=== PATIENT | female | born 1950 | race African-American/Black ===

== ENCOUNTER → 2017-04-11 | Outpatient (CLI) | payer OTHER ==
--- NOTE | 2017-04-11 13:09 | RAD ---
DATE: 04/11/2017 EXAM: DIGITAL SCREEN BILAT W/CAD HISTORY: Routine screening COMPARISON: 03/23/2016 This study was interpreted with the benefit of Computerized Aided Detection (CAD). FINDINGS: Breast Density: FATTY The Breast Parenchyma is primarily fatty replaced. Breast parenchyma level density A.. There has been little change compared to the previous exam IMPRESSION: Benign finding BI-RADS CATEGORY: 2 BENIGN FINDING(S) RECOMMENDED FOLLOW-UP: 12M 12 MONTH FOLLOW-UP PQRS compliance statement: Patient information was entered into a reminder system with a target due date 04/11/2018 for the next mammogram. Mammography is a sensitive method for finding small breast cancers, but it does not detect them all and is not a substitute for careful clinical examination. A negative mammogram does not negate a clinically suspicious finding and should not result in delay in biopsying a clinically suspicious abnormality. "Our facility is accredited by the [employer] Mammography Program."
== END | disposition home or self-care (01) ==
LOC: MAMMO 12:28
PROVIDERS: ATTEND Physician Assistant Surgical
DX: Z12.31 Encounter for screening mammogram for malignant neoplasm of breast (principal)
CPT/HCPCS: G0202; 77067

== ENCOUNTER → 2017-05-16 | Outpatient (CLI) | payer OTHER ==
--- NOTE | 2017-05-16 12:28 | CARD ---
APPROVED REPORT EXAM: Two-dimensional and M-mode echocardiogram with Doppler and color Doppler. Other Information Quality : Good INDICATION Murmur 2D DIMENSIONS RVDd3.2 (2.9-3.5cm)Left Atrium(2D)3.7 (1.6-4.0cm) IVSd1.3 (0.7-1.1cm)Aortic Root(2D)2.2 (2.0-3.7cm) LVDd4.2 (3.9-5.9cm)LVOT Diameter1.9 (1.8-2.4cm) PWd1.3 (0.7-1.1cm)LVDs2.3 (2.5-4.0cm) FS (%) 30.0 %SV59.8 ml LVEF(%)60.0 (>50%) Aortic Valve AoV Peak Cliff.167.4cm/sAoV VTI41.8cm AO Peak GR.11.2mmHgLVOT Peak Cliff.154.7cm/s LVOT VTI 37.31cmAO Mean GR.7mmHg JOSHUA (VMAX)2.68nz0FKJ (VTI)2.60cm2 AI P 1/2 Tjeh697yp Mitral Valve MV E Wlvpmgsl43.8cm/sMV DECEL QAXD448wa MV A Tlrwborv744.4cm/sMV WEJ18wi E/A Ratio0.7MVA (PHT)2.72cm2 TDI E/Lateral E'17.5E/Medial E'17.9 Tricuspid Valve TR P. Wjvepyia062ue/sRAP BNHGWGEY1bbJt TR Peak Gr.17uaDtBNEO50xdGj Pulmonary Vein S1 Sybiqjdm99.0cm/sD2 Bqfcezxo72.6cm/s LEFT VENTRICLE The left ventricle is normal size. There is mild concentric left ventricular hypertrophy. The left ve ntricular systolic function is normal and the ejection fraction is within normal range. The Ejection Fraction is 55-60%. There is normal LV segmental wall motion. Transmitral Doppler flow pattern is Gra de I-abnormal relaxation pattern. RIGHT VENTRICLE The right ventricle is normal size. The right ventricular systolic function is normal. ATRIA The left atrium size is normal. The right atrium size is normal. The interatrial septum is intact wit h no evidence for an atrial septal defect or patent foramen ovale as noted on 2-D or Doppler imaging. AORTIC VALVE The aortic valve is not well visualized but appears to be functioning normally by Doppler interrogati on. Doppler and Color Flow revealed mild aortic regurgitation. There is no significant aortic valvula r stenosis. MITRAL VALVE The mitral valve is normal in structure and function. Mitral annular calcification is mild. There is no evidence of mitral valve prolapse. There is no mitral valve stenosis. Doppler and Color-flow revea led trace to mild mitral regurgitation. TRICUSPID VALVE The tricuspid valve is normal in structure and function. Doppler and Color Flow revealed trace tricus pid regurgitation. There is moderate pulmonary hypertension. The PA pressure was estimated at 46 mmHg . There is no tricuspid valve stenosis. PULMONIC VALVE Doppler and Color Flow revealed trace pulmonic valvular regurgitation. There is no pulmonic valvular stenosis. GREAT VESSELS The aortic root is normal in size. The ascending aorta is normal in size. The IVC is normal in size a nd collapses >50% with inspiration. PERICARDIAL EFFUSION There is no evidence of significant pericardial effusion. Critical Notification Critical Value: No <Conclusion> The left ventricular systolic function is normal and the ejection fraction is within normal range. Th e Ejection Fraction is 55-60%. There is normal LV segmental wall motion. There is mild concentric left ventricular hypertrophy.
== END | disposition home or self-care (01) ==
LOC: ECHO 09:09
PROVIDERS: ATTEND Internal Medicine Cardiovascular Disease
DX: I27.20 Pulmonary hypertension, unspecified (principal); R01.1 Cardiac murmur, unspecified
CPT/HCPCS: 93306

== ENCOUNTER 2018-01-22 06:34 | Outpatient (CLI) | payer OTHER ==
[2018-01-22 07:20] LABS: ADD MAN DIFF? NO
[2018-01-22 07:23] LABS: BASO # 0.1 x10^3/uL (0.0-0.2); BASO % 1 % (0-3); EOS % 0 % (0-3); HEMATOCRIT 39.9 % (36.0-47.0); HEMOGLOBIN 13.1 g/dL (12.0-15.5); LYMPH # 1.1 x10^3/uL (1.0-4.8); LYMPH % 12 % (24-48); MEAN CORPUSCULAR HEMOGLOBIN 28 pg (25-35); MEAN CORPUSCULAR HGB CONC 33 g/dL (31-37); MEAN CORPUSCULAR VOLUME 85 fL (79-100); MONO # 0.1 x10^3/uL (0.0-1.1); MONO % 1 % (0-9); NEUT # 8.4 x10^3uL (1.8-7.7); NEUT % 87 % (31-73); PLATELET COUNT 201 x10^3/uL (140-400); RED CELL DISTRIBUTION WIDTH 15.7 % (11.5-14.5); WHITE BLOOD COUNT 9.7 x10^3/uL (4.0-11.0)
[2018-01-22 07:33] LABS: PROTHROMBIN TIME PATIENT 12.7 SEC (11.7-14.0)
[2018-01-22] MEDS ORDERED: LIDOCAINE 2%/EPI 1:100,000 20 ML VIAL. (08:10)
[2018-01-22 08:32] LABS: % BANDS 10 % (0-9); % LYMPHS 13 % (24-48); % MONOS 1 % (0-10); % SEGS 76 % (35-66)
[2018-01-22 08:33] LABS: PLT ESTIMATE ADEQUATE (ADEQUATE)
[2018-01-22 08:34] LABS: ANISOCYTOSIS SLIGHT
[2018-01-22] MEDS ORDERED: ceFAZolin 1GM IVPB FOR OMNI 100 ML IV (08:36)
[2018-01-22] MEDS ORDERED: MIDAZOLAM HCL/PF 2 MG/2 ML VIAL. (08:36)
[2018-01-22] MEDS ORDERED: fentaNYL PF VIAL 100 MCG/2 ML VIAL (08:37)
[2018-01-22] MEDS: MIDAZOLAM HCL/PF 2 MG/2 ML VIAL. IV (09:14)
[2018-01-22] MEDS: fentaNYL PF VIAL 100 MCG/2 ML VIAL IV (09:15)
[2018-01-22] MEDS: LIDOCAINE 2%/EPI 1:100,000 20 ML VIAL. IJ (09:15)
== END 2018-01-22 11:00 | disposition home or self-care (01) ==
LOC: INTRAD 06:34
DX: C34.90 Malignant neoplasm of unspecified part of unspecified bronchus or lung (principal); I10 Essential (primary) hypertension; E66.9 Obesity, unspecified; E11.9 Type 2 diabetes mellitus without complications; D64.9 Anemia, unspecified; Z98.890 Other specified postprocedural states; Z79.899 Other long term (current) drug therapy; Z87.891 Personal history of nicotine dependence; Z90.710 Acquired absence of both cervix and uterus; Z79.84 Long term (current) use of oral hypoglycemic drugs; Z85.118 Personal history of other malignant neoplasm of bronchus and lung
CPT/HCPCS: 36415; 36561; 76937; 77001; 85007; 85025; 85610; 99152; 99153; C1751; C1892; J0690; J2250; J3010; J3490

== ENCOUNTER → 2018-03-12 | Outpatient (CLI) | payer OTHER ==
[2018-01-22 09:30] VITALS: BP 119/65
[~2018-03-12] MED LIST: AMLO2.5T PO; BENZ-8 PO; BENZ100C PO; CHOL10003 PO; CLON0.2T PO; CYAN10005 PO; DEXA4TAB PO; FURO40TA4 PO; GLIP5TAB10 PO; HYDR12.53 PO; LINA5TAB4 PO; LISI1TAB5 PO; LUBI24CA7 PO; METO-239 PO; OMEP40CA5 PO; ONDA8TAB9 PO; OXYC-327 PO; POTA10TA12 PO; SERT25TA PO; SPIR25TA5 PO; VENTOLIN HFA18 GM INH; ZOLP5TAB5 PO
--- NOTE | 2018-03-12 13:07 | RAD ---
EXAM: CT Chest without IV contrast CLINICAL HISTORY: MALIGNANT NEOPLASM OF UPPER LOBE OF LEFT LUNG COMPARISON: 11/10/2017, PET scan 12/15/1979 TECHNIQUE: CT of the chest without intravenous contrast. Axial, coronal and sagittal reformatted images were generated. ---PQRS compliance statement - One or more of the following individualized dose reduction techniques were utilized for this study: 1. Automated exposure control 2. Adjustment of the mA and/or kV according to patient size 3. Use of iterative reconstruction technique--- FINDINGS: Lack of intravenous contrast limits evaluation of solid organs, vasculature, and lymph nodes. Chest: The heart is not enlarged. Trace pericardial fluid is likely physiologic. Coronary artery calcifications are seen. Right Port-A-Cath tip terminates in the distal SVC/cavoatrial junction. No definite mediastinal lymphadenopathy. Within the constraints of this noncontrast exam, no hilar lymphadenopathy. No axillary lymphadenopathy. The known left upper lobe and hilar lung mass have since decreased in size now measuring approximately 2.1 x 1.4 cm in the left suprahilar region. Mild associated fissural thickening is seen. No pleural effusion or pneumothorax. Visualized Upper abdomen: Unremarkable Bones: Multilevel degenerative changes of the thoracic spine are seen. IMPRESSION: 1. The known left upper lobe lung mass has decreased in size suggesting favorable treatment response. 2. No thoracic lymphadenopathy. Electronically signed by: Luis Alberto Jansen MD (03/12/2018 1:04 PM) [id number]
== END | disposition home or self-care (01) ==
LOC: CT 10:31
PROVIDERS: ATTEND Internal Medicine Hematology & Oncology
DX: C34.12 Malignant neoplasm of upper lobe, left bronchus or lung (principal); I10 Essential (primary) hypertension; E11.9 Type 2 diabetes mellitus without complications; E78.5 Hyperlipidemia, unspecified; K21.9 Gastro-esophageal reflux disease without esophagitis; J44.1 Chronic obstructive pulmonary disease with (acute) exacerbation; Z87.891 Personal history of nicotine dependence; Z85.118 Personal history of other malignant neoplasm of bronchus and lung; Z90.710 Acquired absence of both cervix and uterus; Z68.41 Body mass index [BMI] 40.0-44.9, adult; Z83.3 Family history of diabetes mellitus
CPT/HCPCS: 71250

== ENCOUNTER → 2018-05-09 | Outpatient (CLI) | payer OTHER ==
[2018-01-22 09:30] VITALS: BP 119/65
[~2018-05-09] MED LIST changes: -AMLO2.5T PO; +AMLO2.5T3 PO
--- NOTE | 2018-05-09 15:21 | RAD ---
Examination: Ultrasound right upper extremity venous duplex HISTORY: History of right-sided arm, chest pain around the port COMPARISON: None available TECHNIQUE: Grayscale, color Doppler 2-D, spectral waveform analysis of the right upper extremity venous system were performed FINDINGS: The visualized internal jugular vein, subclavian vein, axillary vein, brachial, basilic, radial, ulnar and cephalic veins are patent. Images of the right chest about the port grossly appears unremarkable. IMPRESSION: No evidence of deep venous thrombosis right upper extremity venous system. Electronically signed by: Stephan Suarez MD (05/09/2018 3:18 PM) [id number]
== END | disposition home or self-care (01) ==
LOC: US 14:27
PROVIDERS: ATTEND Internal Medicine Hematology & Oncology
DX: R07.89 Other chest pain (principal)
CPT/HCPCS: 93971

== ENCOUNTER → 2018-07-31 | Outpatient (CLI) | payer OTHER ==
[2018-01-22 09:30] VITALS: BP 119/65
[~2018-07-31] MED LIST changes: -HYDR12.53 PO; +HYDR12.575 PO; +IOHEXOL 300 MG/ML 100ML VIAL. IV ONE; +LINA5TAB PO; -LINA5TAB4 PO; -OXYC-327 PO; +OXYC1TAB19 PO
--- NOTE | 2018-07-31 12:53 | RAD ---
CT CHEST W/CONTRAST Indication: Lung cancer Technique: Postcontrast CT imaging was performed of the chest, multiplanar reconstruction images submitted. One or more of the following individualized dose reduction techniques were utilized for this examination: 1. Automated exposure control 2. Adjustment of the mA and/or kV according to patient size 3. Use of iterative reconstruction technique. Comparison: March 12, 2018 Findings: As best seen on axial image 19 series 2, there is residual somewhat spiculated left upper lobe mass estimated about 1.1 cm transverse by 1.3 cm AP with adjacent increased somewhat reticular density extending more posteriorly and laterally. There is a greater degree of more central density at this location compared with the previous exam, although overall size fairly similar. There is new mild somewhat reticular, slightly nodular appearing density more anteriorly of the left upper lobe such as seen on axial images 17-19. There is also increased patchy groundglass density of the left upper lobe. More superior reticular density of the left upper lobe was present previously. There is new nodular appearing density of the left lower lobe as seen on axial images 25 and 26, coronal images 49 and 50, greatest dimension about 1.6 cm transverse by 0.8 cm CC by 1 cm AP. There is also new small focus of nodularity along the lateral margin of the left major fissure axial image 19. There is similar mild likely fibrotic change right lower lobe. There is no new right pulmonary nodularity. There is no pleural fluid or pneumothorax. There is coronary calcification. Thoracic aortic caliber is similar, no intraluminal flap. There are probable small foci of nodularity of the thyroid gland bilaterally, largest on the right about 0.8 cm and about 1 cm on the left. There is right port catheter. There is right paratracheal node about 1 cm short axis dimension, probably unchanged although limited comparison as more artifact in this region on previous exam. There is multilevel thoracic spondylosis and degenerative disc disease. IMPRESSION: 1. There is a greater degree of internal density at site of spiculated left upper lobe lesion although size overall similar. There is new focus of nodular density of the left lower lobe. While this could be due to etiology such as infectious infiltrate, new mass is not excluded for which short-term interval follow-up at such as in 2 months advised, other new slight increased nodular and reticular density of the left upper lobe as stated. There is no pleural fluid. Electronically signed by: Braxton Sharma MD (07/31/2018 12:49 PM) [id number]
== END | disposition home or self-care (01) ==
LOC: CT 08:31
PROVIDERS: ATTEND Internal Medicine Hematology & Oncology
DX: C34.12 Malignant neoplasm of upper lobe, left bronchus or lung (principal); M47.894 Other spondylosis, thoracic region; M51.34 Other intervertebral disc degeneration, thoracic region; I25.10 Atherosclerotic heart disease of native coronary artery without angina pectoris; R53.83 Other fatigue
CPT/HCPCS: 71260; Q9967

== ENCOUNTER → 2018-10-08 | Outpatient (CLI) | payer OTHER ==
[2018-01-22 09:30] VITALS: BP 119/65
[~2018-10-08] MED LIST changes: -AMLO2.5T3 PO; +AMLO2.5T5 PO
--- NOTE | 2018-10-08 12:00 | RAD ---
PQRS Compliance statement: One or more of the following individualized dose reduction techniques were utilized for this examination: 1. Automated exposure control. 2. Adjustment of the mA and/or kV according to patient size. 3. Use of iterative reconstruction technique. Indication:MALIGNANT NEOPLASM OF LEFT LUNG
IV OMNI 300 75 MLS
PREVIOUS TECHNIQUE: CT chest with IV contrast with multiplanar reformats. COMPARISON: 07/31/2018 FINDINGS: Right chest wall Chemo-Port is seen with its tip at the cavoatrial junction. Heart is normal in size. No pericardial or pleural effusion. Clear neck base. No enlarged axillary, mediastinal or hilar adenopathy. Trace amount of fluid is seen in the periaortic recess. New spiculated opacity is seen in the superior segment of the left lower lobe approximately measuring 3.4 x 2.0 cm (series 2 image 25). Left suprahilar linear opacities are seen extending to the periphery not significantly changed when compared with exam. Additional ill-defined nodular opacities are seen in the superior segment of the left lower lobe. New spiculated opacity seen in the medial aspect of the anterior left upper lobe (series 2 image 23) measuring 8 mm. Previously mentioned left upper lobe spiculated opacity is stable in morphology and most likely represents chronic scarring. Right lung is clear. Visualized sections through the liver, spleen, gallbladder, pancreas, adrenals and kidneys within normal limits. No suspicious bony lesion. IMPRESSION: 1. New ill-defined spiculated opacity in the superior segment left lower lobe as described above. Follow-up CT chest in 3 months recommended. Other subcentimeter ill-defined opacity in the medial aspect of the left upper lobe, nonspecific. Attention on follow-up. 2. Rest of the findings in the left upper lobe are stable. Electronically signed by: Rizwan Salcido DO (10/08/2018 11:57 AM) [facility]
== END | disposition home or self-care (01) ==
LOC: CT 09:01
PROVIDERS: ATTEND Internal Medicine Hematology & Oncology
DX: C34.12 Malignant neoplasm of upper lobe, left bronchus or lung (principal); R91.8 Other nonspecific abnormal finding of lung field
CPT/HCPCS: 71260; Q9967

== ENCOUNTER → 2019-01-07 | Outpatient (CLI) | payer OTHER ==
[2018-01-22 09:30] VITALS: BP 119/65
[~2019-01-07] MED LIST changes: -IOHEXOL 300 MG/ML 100ML VIAL. IV ONE
--- NOTE | 2019-01-07 14:54 | RAD ---
Right upper extremity venous ultrasound, 01/07/2019: HISTORY: Pain in neck and chest around Port-A-Cath Duplex evaluation of the major veins in the right upper extremity was performed including grayscale, color-flow and spectral Doppler analysis. The right internal jugular, subclavian, axillary and paired brachial veins are patent. The radial and ulnar veins are patent. Patent cephalic and basilic veins are also evident. IMPRESSION: There is no duplex evidence of deep vein thrombosis in the right upper extremity. Electronically signed by: Gibran Allen MD (01/07/2019 2:51 PM) [facility]
== END | disposition home or self-care (01) ==
LOC: US 11:28
PROVIDERS: ATTEND Internal Medicine Hematology & Oncology
DX: M54.2 Cervicalgia (principal); R22.2 Localized swelling, mass and lump, trunk; Z95.9 Presence of cardiac and vascular implant and graft, unspecified
CPT/HCPCS: 93971

== ENCOUNTER → 2019-01-16 | Outpatient (CLI) | payer OTHER ==
[2018-01-22 09:30] VITALS: BP 119/65
[~2019-01-16] MED LIST changes: +CRESTOR10 MG PO; +DURV120V IV; +IOHEXOL 300 MG/ML 100ML VIAL. IV ONE
--- NOTE | 2019-01-16 16:13 | RAD ---
CT of the chest with contrast, 01/16/2019: HISTORY: Follow-up lung cancer Multidetector CT imaging was performed following an IV bolus injection of iodinated contrast material. Comparison is made to a study from 10/08/2018. There is a persistent streaky opacity in the superior segment of the left lower lobe similar to that seen on the previous study. There are linear and groundglass opacities in the left upper lobe along the superolateral aspect of left hilum where a lung malignancy was previously treated. These opacities appear similar to on the previous exam. Mild nodular type infiltrate in the anterior aspect of the left upper lobe has progressed slightly as best seen on axial images 16 through 18 of series #2. A calcified granuloma is present in the left lower lobe. There is minimal unchanged scarring in the right lung. A right Port-A-Cath remains in place extending to the level the atriocaval junction. The heart is mildly enlarged. There is a small amount of pericardial fluid extending into the superior pericardial recesses, also evident on the previous study. Coronary artery calcifications are present. No mediastinal or hilar adenopathy is seen. Moderate scattered degenerative changes are present in the spine. IMPRESSION: Several irregular opacities in the left upper lobe and superior segment of the left lower lobe are similar to those seen on 10/08/2018, with only slight progression of several small streaky and nodular opacities anteriorly. The findings may represent post radiation change and/or inflammation. Residual neoplasm cannot be excluded. Further CT surveillance is suggested. PQRS Compliance Statement: One or more of the following individualized dose reduction techniques were utilized for this examination: 1. Automated exposure control 2. Adjustment of the mA and/or kV according to patient size 3. Use of iterative reconstruction technique Electronically signed by: Gibran Allen MD (01/16/2019 4:10 PM) [facility]
== END | disposition home or self-care (01) ==
LOC: CT 09:34
PROVIDERS: ATTEND Radiology Radiation Oncology
DX: J84.10 Pulmonary fibrosis, unspecified (principal); I25.10 Atherosclerotic heart disease of native coronary artery without angina pectoris; R91.8 Other nonspecific abnormal finding of lung field; M47.814 Spondylosis without myelopathy or radiculopathy, thoracic region; Z85.118 Personal history of other malignant neoplasm of bronchus and lung
CPT/HCPCS: 71260; Q9967

== ENCOUNTER → 2019-05-10 | Outpatient (CLI) | payer OTHER ==
[2018-01-22 09:30] VITALS: BP 119/65
[~2019-05-10] MED LIST changes: +CYAN-25 PO; -CYAN10005 PO; -IOHEXOL 300 MG/ML 100ML VIAL. IV ONE; +LISI1TAB19 PO; -LISI1TAB5 PO; +OMEP40CA45 PO; -OMEP40CA5 PO
--- NOTE | 2019-05-10 16:36 | RAD ---
CHEST PA LATERAL Clinical indications: Acute bronchitis COMPARISON: Portable chest x-ray dated November 14, 2017. Findings: Chronic interstitial lung disease is seen bilaterally. There is a chronic infiltrate within the left upper lobe. This had a more consolidative appearance within the left upper lobe on the previous chest x-ray. Therefore, this may represent residual scarring from previous pneumonia or treated neoplasm. No new lung infiltrate is seen otherwise. No pleural effusion or pneumothorax is seen. Heart size is prominent but stable. Right IJ Port-A-Cath is in place and tip is seen within the right atrium. Mediastinum and pulmonary vasculature are unchanged. Impression: No new radiographic abnormality is seen. Chronic left upper lobe scarring or nodularity. No new abnormality. Right IJ Port-A-Cath tip is seen within the right atrium. No pneumothorax is seen. Electronically signed by: Woo Morales MD (05/10/2019 4:33 PM) [place] [id number]
== END | disposition home or self-care (01) ==
LOC: RAD 08:59
PROVIDERS: ATTEND Nurse Practitioner Family
DX: J84.9 Interstitial pulmonary disease, unspecified (principal); J20.6 Acute bronchitis due to rhinovirus
CPT/HCPCS: 71046

== ENCOUNTER → 2019-05-28 | Outpatient (CLI) | payer OTHER ==
[2018-01-22 09:30] VITALS: BP 119/65
[~2019-05-28] MED LIST changes: +IOHEXOL 240 MG/ML 50ML VIAL. PO ONE; +IOHEXOL 300 MG/ML 100ML VIAL. IV ONE
--- NOTE | 2019-05-28 17:02 | RAD ---
EXAM: CT OF THE CHEST, ABDOMEN AND PELVIS WITH CONTRAST. HISTORY: Lung cancer restaging. TECHNIQUE: Computed tomography of the chest, abdomen and pelvis was performed after the intravenous administration of intravenous contrast. COMPARISON: 01/16/2019. FINDINGS: Bone windows reveal no suspicious lesions. There is grade 1 anterolisthesis at L4-5 associated with moderate to severe osteoarthritis. Central canal stenosis is moderate. A right-sided port catheter has its tip in the superior cavoatrial junction. There are no pathologically enlarged mediastinal or axillary lymph nodes. There is no pleural or pericardial effusion. There is stable fluid within the superior pericardial recesses. There is left ventricular hypertrophy. There are atherosclerotic calcifications of the coronary arteries. The main pulmonary artery measures 3.8 cm. Scarring about the left hilum is consistent with posttreatment change. There is no recurrent mass. Nodular foci in the apex are stable to decreased. Atelectasis or scarring in the apex has increased. A calcified granuloma is noted on the left. The abdomen study is limited by delayed phase contrast enhancement. The liver, gallbladder, pancreas, adrenal glands, spleen and kidneys are unremarkable. There are no pathologically enlarged lymph nodes. There is mild bladder wall thickening. Left colonic diverticulosis is mild. There is no small bowel obstruction. There is no ascites. A small umbilical hernia contains only fat. IMPRESSION: 1. Posttreatment changes on the left have increased mildly. No evidence of recurrent or metastatic disease. 2. Enlargement of the pulmonary arteries suggests pulmonary arterial hypertension. Left ventricular hypertrophy. *One or more of the following individualized dose reduction techniques were utilized for this examination: 1. Automated exposure control. 2. Adjustment of the mA and/or kV according to patient size. 3. Use of iterative reconstruction technique. Electronically signed by: Radha Cole MD (05/28/2019 4:59 PM) [facility]
== END | disposition home or self-care (01) ==
LOC: CT 07:57
PROVIDERS: ATTEND Internal Medicine Hematology & Oncology
DX: K57.30 Diverticulosis of large intestine without perforation or abscess without bleeding (principal); K42.9 Umbilical hernia without obstruction or gangrene; C34.12 Malignant neoplasm of upper lobe, left bronchus or lung; I25.10 Atherosclerotic heart disease of native coronary artery without angina pectoris; J84.10 Pulmonary fibrosis, unspecified; N32.89 Other specified disorders of bladder; I51.7 Cardiomegaly; M43.16 Spondylolisthesis, lumbar region; M47.816 Spondylosis without myelopathy or radiculopathy, lumbar region
CPT/HCPCS: 71260; 74177; Q9966; Q9967

== ENCOUNTER 2019-11-26 08:30 | Outpatient (CLI) | payer MEDICARE, OTHER ==
[~2019-11-26] VITALS: Ht 163.8 cm; Wt 110.7 kg
[~2019-11-26 08:30] MED LIST changes: -IOHEXOL 240 MG/ML 50ML VIAL. PO ONE; -IOHEXOL 300 MG/ML 100ML VIAL. IV ONE
[2019-11-26 08:59] VITALS: BP 171/86
[2019-11-26 09:10] LABS: BASO # 0.1 x10^3/uL (0.0-0.2); BASO % 1 % (0-3); EOS # 0.1 x10^3/uL (0.0-0.7); EOS % 1 % (0-3); HEMATOCRIT 38.4 % (36.0-47.0); HEMOGLOBIN 12.5 g/dL (12.0-15.5); LYMPH % 23 % (24-48); MEAN CORPUSCULAR HEMOGLOBIN 28 pg (25-35); MEAN CORPUSCULAR HGB CONC 33 g/dL (31-37); MEAN CORPUSCULAR VOLUME 87 fL (79-100); MONO # 0.8 x10^3/uL (0.0-1.1); MONO % 9 % (0-9); NEUT # 5.6 x10^3/uL (1.8-7.7); NEUT % 66 % (31-73); PLATELET COUNT 167 x10^3/uL (140-400); RED BLOOD COUNT 4.41 x10^6/uL (3.50-5.40); RED CELL DISTRIBUTION WIDTH 17.1 % (11.5-14.5); WHITE BLOOD COUNT 8.5 x10^3/uL (4.0-11.0)
[2019-11-26] MEDS ORDERED: ZOLP5TAB PO (09:17)
[2019-11-26] MEDS ORDERED: ASPI-612 PO (09:17)
[2019-11-26] MEDS ORDERED: [UNRECOGNIZED DRUG - CODE] PO (09:17)
[2019-11-26] MEDS ORDERED: TRAM50TA PO (09:17)
[2019-11-26] MEDS ORDERED: CALC-497 PO (09:17)
[2019-11-26] MEDS ORDERED: MONT10TA49 PO (09:17)
[2019-11-26] MEDS ORDERED: OMEG-117 PO (09:17)
[2019-11-26] MEDS ORDERED: ATOR10TA60 PO (09:17)
[2019-11-26] MEDS ORDERED: LIDOCAINE 1%/EPI 1:100,000 20 ML VIAL. ONE (09:19)
[2019-11-26 09:20] LABS: PROTHROMBIN TIME PATIENT 11.7 SEC (11.7-14.0)
[2019-11-26] MEDS ORDERED: MIDAZOLAM HCL/PF 2 MG/2 ML VIAL. ONE (10:02)
[2019-11-26] MEDS ORDERED: fentaNYL PF VIAL 100 MCG/2 ML VIAL ONE (10:02)
[2019-11-26 10:29] VITALS: BP 152/77
[2019-11-26] MEDS ORDERED: LIDOCAINE 1%/EPI 1:100,000 20 ML VIAL. INJ ONE (10:30)
[2019-11-26 10:43] VITALS: BP 154/74
[2019-11-26 10:55] VITALS: BP 157/70
[2019-11-26] MEDS ORDERED: oxyCODONE/APAP 7.5/325 1 TAB TABLET PO ONE (11:00)
[2019-11-26 11:25] VITALS: BP 143/67
[2019-11-26 11:55] VITALS: BP 146/74
--- NOTE | 2019-11-26 11:57 | RAD ---
11/26/2019 9:52 AM Removal of right iJ power port Indication: No longer requires Port Discussion: The risks and benefits of the procedure were discussed the patient. Informed consent was obtained. A timeout procedure was performed. The right chest overlying the port was prepped and draped using maximum sterile barrier technique. All elements of maximal sterile barrier technique including the use of a cap, mask, sterile gown, sterile gloves, large sterile sheet, appropriate hand hygiene, and 2% chlorhexidine for cutaneous antisepsis (or acceptable alternative antiseptic per current guidelines) were followed for this procedure. 1% lidocaine was administered for local anesthesia. A small incision was made overlying the port reservoir. The reservoir and catheter were removed intact. The wound was closed using 4-0 Vicryl suture. No immediate complications were identified. Sterile dressings were applied. Impression: Removal of right internal jugular PowerPort
--- NOTE | 2019-11-26 12:10 | NUR ---
Discharge Note: NELL KING Discharge instructions and discharge home medications reviewed with Patient and a copy given. All questions have been answered and understanding verbalized. The following instructions and handouts were given: incision site care Discontinued lines and drains: Peripheral IV intact. Dressing to R chest clean and dry Patient discharged to Home or Self Care with Family Member via Wheelchair MILI RUSSO Addendum: 11/26/19 at 1243 by ANA BARFIELD RN Amended: Links added.
== END 2019-11-26 12:10 | disposition home or self-care (01) ==
LOC: INTRAD 08:30
PROVIDERS: ATTEND Internal Medicine Hematology & Oncology
DX: Z45.2 Encounter for adjustment and management of vascular access device (principal); Z79.01 Long term (current) use of anticoagulants
CPT/HCPCS: 36415; 36590; 77001; 85025; 85610; J3490

== ENCOUNTER 2019-12-17 00:29 | Emergency (ER) | payer MEDICARE, OTHER ==
[~2019-12-17] VITALS: Ht 162.6 cm; Wt 110.3 kg
[~2019-12-17 00:29] MED LIST changes: +ASPI-612 PO; +ATOR10TA60 PO; +CALC-497 PO; +MONT10TA49 PO; +OMEG-117 PO; +TRAM50TA PO; +ZOLP5TAB PO; +[UNRECOGNIZED DRUG - CODE] PO
[2019-12-17] MEDS ORDERED: HYDR-3164 PO (00:42)
[2019-12-17] MEDS ORDERED: ORPH100T PO (00:42)
--- NOTE | 2019-12-17 00:42 | PHYS DOC ---
Past Medical History Past Medical History: Arrhythmia, Asthma, Diabetes-Type II, Hypertension Past Surgical History: Tubal ligation, Other Additional Past Surgical Histo: 2 procedures Smoking Status: Former Smoker Alcohol Use: None Drug Use: None General Adult EDM: Chief Complaint: BACK PAIN OR INJURY HPI: HPI: Patient is a 69 year old female who presents with complaint of acute exacerbation of chronic back pain. Patient indicates that she has a history of slipped disc and she was on the toilet going to the bathroom when she felt pain getting worse. She states she went to get up and go to bed but was not able to get onto her bed due to the pain. Patient called 911. Patient rates her pain to be a 10 out of 10. She denies any loss of bowel or bladder control and denies saddle anesthesia. She states that pain is worsened with movement. She does indicate that she has a history of a slipped disc and L4-5 fusion. [] Review of Systems: Review of Systems: Constitutional: Denies fever or chills. [] Respiratory: Denies cough or shortness of breath. [] Cardiovascular: Denies chest pain or edema. [] Musculoskeletal: Complains of lower back pain. [] Integument: Denies rash. [] Neurologic: Denies headache, focal weakness or sensory changes. [] Heart Score: Risk Factors: Risk Factors: DM, Current or recent (<one month) smoker, HTN, HLP, family history of CAD, obesity. Risk Scores: Score 0 - 3: 2.5% MACE over next 6 weeks - Discharge Home Score 4 - 6: 20.3% MACE over next 6 weeks - Admit for Clinical Observation Score 7 - 10: 72.7% MACE over next 6 weeks - Early Invasive Strategies Allergies: Allergies: Allergies Coded Allergies Type Severity Reaction Last Updated Verified No Known Drug Allergies 11/26/19 No Physical Exam: PE: Constitutional: Well developed, well nourished, no acute distress, non-toxic appearance. [] Neck: Normal range of motion, no tenderness, supple, no stridor. [] Cardiovascular: Regular rate and rhythm [] Lungs & Thorax: Bilateral breath sounds clear to auscultation [] Abdomen: Bowel sounds normal, soft, no tenderness. [] Skin: Warm, dry, no erythema, no rash. [] Back: There is tenderness to palpation bilateral lumbar spine paraspinal musculature. [] Neurologic: Alert and oriented X 3, no focal deficits noted. [] EKG: EKG: [] Radiology/Procedures: Radiology/Procedures: [] Course & Med Decision Making: Course & Med Decision Making Pertinent Labs and Imaging studies reviewed. (See chart for details) [] Dragon Disclaimer: Dragon Disclaimer: This electronic medical record was generated, in whole or in part, using a voice recognition dictation system. Departure Departure Impression: Primary Impression: Acute exacerbation of chronic low back pain Disposition: HOME, SELF-CARE Condition: STABLE Referrals: DEANDRE KLINE D.O. (PCP) Patient Instructions: Back Pain, Adult, Chronic Back Pain Scripts Orphenadrine Citrate (ORPHENADRINE CITRATE) 100 Mg Tablet.er 1 TAB PO BID PRN for MUSCLE SPASMS, #14 TAB Prov: RICKY SCOTT Jr. DO 12/17/19 Hydrocodone/Apap 5-325 (NORCO 5-325 TABLET) 1 Each Tablet 1-2 EACH PO PRN Q6HRS PRN for PAIN, #15 as needed for pain Prov: RICKY SCOTT Jr. DO 12/17/19 RICKY SCOTT Jr. DO December 17, 2019 00:42
[2019-12-17 00:43] VITALS: BP 172/75
[2019-12-17] MEDS ORDERED: ORPHENADRINE CITRATE 60 MG/2 ML VIAL. IM ONE (01:00)
[2019-12-17] MEDS ORDERED: fentaNYL PF VIAL 100 MCG/2 ML VIAL IM ONE (01:00)
== END 2019-12-17 01:25 | disposition home or self-care (01) ==
LOC: ER 00:29
DX: G89.29 Other chronic pain (principal); M54.5 Low back pain; E11.9 Type 2 diabetes mellitus without complications; I10 Essential (primary) hypertension; J45.909 Unspecified asthma, uncomplicated; Z87.891 Personal history of nicotine dependence
CPT/HCPCS: 96372; 99284; J2360; J3010

== ENCOUNTER → 2020-03-19 | Outpatient (CLI) | payer MEDICARE, OTHER ==
[~2020-03-19] MED LIST changes: -ASPI-612 PO; +ASPI-886 PO; +HYDR-3164 PO; -LISI1TAB19 PO; +LISI1TAB37 PO; +ORPH100T PO
--- NOTE | 2020-03-19 08:42 | [facility] ---
EXAM: Lumbar spine MRI without contrast. HISTORY: Lower back pain. TECHNIQUE: Multiplanar, multisequence magnetic resonance imaging of the lumbar spine was performed without contrast. COMPARISON: None. FINDINGS: There is grade 1 anterolisthesis of L4 on L5, measuring 6 mm. There is grade 1 anterolisthesis of L5 on S1, measuring 3 mm. There is endplate remodeling with disc space narrowing and osteophytosis at L4-L5. There is disc desiccation and endplate remodeling with Schmorl's node formation at L5-S1. There is additional endplate remodeling at the lower thoracic levels. There is no suspicious osseous lesion. There is no fracture. The conus terminates at L2. There are disc bulges with endplate remodeling at the lower thoracic levels which are not included on the axial images. At L1-L2, there is a disc bulge. There is no stenosis. At L2-L3, there is a disc bulge. There is no stenosis. At L3-L4, there is a left foraminal to extra foraminal disc protrusion with 3 mm superior extrusion superimposed on a disc bulge and endplate remodeling. There is mild bilateral facet arthropathy. There is mild to moderate left foraminal stenosis with abutment of the exiting left L3 nerve root. At L4-L5, there is a broad-based posterior disc protrusion with 4 mm superior extrusion superimposed on a right lateral predominant disc bulge and endplate osteophytosis. There is grade 1 anterolisthesis. There is severe bilateral facet arthropathy. There is severe right and asjh-sr-vnqyaivf left foraminal stenosis with abutment of the exiting right L4 nerve root. There is moderate central canal stenosis. At L5-S1, there is a disc bulge and endplate remodeling. There is severe bilateral facet arthropathy. There is grade 1 anterolisthesis. There is mild bilateral foraminal stenosis. There is mild narrowing of the thecal sac due to epidural fat. IMPRESSION: 1. Grade 1 anterolisthesis of L4 and L5. The combination of listhesis and degenerative changes results in severe right and xkrv-kh-rsrklkaq left foraminal stenosis with abutment of the exiting right L4 nerve root and moderate central canal stenosis. 2. Multilevel degenerative change throughout the remainder of the mid and lower lumbar spine, described in detail above. This results in ajue-kj-zoaqdykh left foraminal stenosis and abutment the exiting left L3 nerve root at L3-L4 and mild bilateral foraminal stenosis at L5-S1. Electronically signed by: Altagracia Vivar MD (03/19/2020 8:39 AM) [facility]
== END | disposition home or self-care (01) ==
LOC: KCIC MRI 07:47
PROVIDERS: ATTEND Family Medicine
DX: M51.36 Other intervertebral disc degeneration, lumbar region (principal); M48.07 Spinal stenosis, lumbosacral region; M47.817 Spondylosis without myelopathy or radiculopathy, lumbosacral region
CPT/HCPCS: 72148

== ENCOUNTER → 2020-10-20 | Outpatient (CLI) | payer MEDICARE, OTHER ==
--- NOTE | 2020-10-20 12:04 | RAD ---
Noncontrast CT scan of the chest compared to similar exam dated May 28, 2019 for squamous cell ellen ng cancer. TECHNIQUE AND FINDINGS: Contiguous axial CT images are obtained through the chest. Sagittal and coron al reformations are evaluated. FINDINGS: There is mild scarring in the left lung apex. There is complete collapse of the left upper lobe as well as the posterior basal segment left lower lobe. These findings have advanced since prior exam, where there was partial atelectasis in the findings may related to evolution of posttreatment change however underlying obstructing neoplasm cannot be excluded. Subtle diffuse groundglass changes throughout both lungs appears chronic. Multifocal coronary artery calcifications are again seen. No suspicious mediastinal, hilar, or axillary lymphadenopathy. Visualized upper abdominal organs are néstor ssly unremarkable, though limited by lack of IV contrast. IMPRESSION: 1. Progression of partial atelectasis in the left upper lobe and posterior medial basal segment left lower lobe to complete atelectasis of these distributions. Findings may represent evolution of posttr eatment change from the patient known prior neoplasm, and there is no definite masslike abnormality, however recurrent neoplasm in one or more distributions cannot be excluded. Recommend three-month fol low-up CT scan and/or PET/CT scan depending on degree of clinical suspicion. PQRS Compliance Statement: One or more of the following individualized dose reduction techniques were utilized for this examinat ion: 1. Automated exposure control 2. Adjustment of the mA and/or kV according to patient size 3. Use of iterative reconstruction technique Electronically signed by: Ramon Cunningham MD (10/20/2020 12:01 PM) [id number]
== END ==
LOC: CT 09:00
PROVIDERS: ATTEND Internal Medicine Hematology & Oncology
DX: C34.12 Malignant neoplasm of upper lobe, left bronchus or lung (principal); J98.4 Other disorders of lung; J98.11 Atelectasis
CPT/HCPCS: 71250

== ENCOUNTER 2021-06-22 16:25 | Inpatient (IN) | payer MEDICARE, OTHER ==
[~2021-06-22] VITALS: Ht 163.8 cm; Wt 122.3 kg
[~2021-06-22 16:25] MED LIST changes: -OMEP40CA45 PO; +OMEP40CA7 PO
[2021-06-22 17:03] LABS: BASO % 0 % (0-3); EOS # 0.1 x10^3/uL (0.0-0.7); EOS % 1 % (0-3); HEMATOCRIT 36.8 % (36.0-47.0); HEMOGLOBIN 11.5 g/dL (12.0-15.5); LYMPH # 1.1 x10^3/uL (1.0-4.8); LYMPH % 14 % (24-48); MEAN CORPUSCULAR HEMOGLOBIN 28 pg (25-35); MEAN CORPUSCULAR HGB CONC 31 g/dL (31-37); MEAN CORPUSCULAR VOLUME 88 fL (79-100); MONO # 0.6 x10^3/uL (0.0-1.1); MONO % 8 % (0-9); NEUT # 5.9 x10^3/uL (1.8-7.7); NEUT % 77 % (31-73); PLATELET COUNT 147 x10^3/uL (140-400); RED BLOOD COUNT 4.16 x10^6/uL (3.50-5.40); RED CELL DISTRIBUTION WIDTH 17.3 % (11.5-14.5); WHITE BLOOD COUNT 7.7 x10^3/uL (4.0-11.0)
[2021-06-22 17:14] LABS: CALCIUM 8.6 mg/dL (8.5-10.1); GFR 66.1; POTASSIUM 3.2 mmol/L (3.5-5.1)
[2021-06-22 17:20] LABS: ALBUMIN 3.2 g/dL (3.4-5.0); ALBUMIN/GLOBULIN RATIO 0.9 (1.0-1.7); MAGNESIUM 1.9 mg/dL (1.8-2.4); TOTAL BILIRUBIN 0.5 mg/dL (0.2-1.0); TOTAL PROTEIN 6.7 g/dL (6.4-8.2)
--- NOTE | 2021-06-22 17:58 | RAD ---
XR CHEST 1V INDICATION: SOA . COMPARISON STUDY: CT chest 10/20/2020. FINDINGS: Lungs: Normal lung volume. Left upper lung opacities and volume loss. No new consolidation. Pleura: No pleural effusion or pneumothorax. Heart and Mediastinum: Cardiomegaly. The great vessels of the thorax are normal. IMPRESSION: Left upper lung opacities and volume loss at site of patient's previously treated lung cancer. No new consolidation. Electronically signed by: Braxton Cardoso MD (06/22/2021 5:55 PM) [facility]
--- NOTE | 2021-06-22 18:28 | EKG ---
[facility] [address] [place] [address] Test Date: 2021-06-22 Test Time: 16:34:43 Pat Name: NELL KING Department: Room: Gender: F Internet Programmer: : [id number] Requested By: ISAAC CA Order Number: [id number] Reading MD: Dimitrios Mcfadden MD Measurements Intervals [place] Rate: 88 P: WI: QRS: -41 QRSD: 102 T: 128 QT: 394 QTc: 480 Interpretive Statements Atrial fibrillation with controlled ventricular response NON-SPECIFIC ST/T CHANGES Electronically Signed On 06-28-2021 11:49:22 COUNSELING DEPARTMENT CHAIR by Dimitrios Mcfadden MD
--- NOTE | 2021-06-22 22:07 | PHYS DOC ---
Past Medical History Past Medical History: Arrhythmia, Asthma, Diabetes-Type II, Hypertension Additional Past Medical Histor: Lung cancer (ISAAC CA DIRECTOR PHARMACOVIGILANCE) Past Surgical History: Tubal ligation, Other Additional Past Surgical Histo: 2 procedures, port removed 11/26/19 (ISAAC CA DIRECTOR PHARMACOVIGILANCE) Smoking Status: Former Smoker Alcohol Use: None Drug Use: None (ISAAC CA DIRECTOR PHARMACOVIGILANCE) General Adult EDM: Chief Complaint: SHORTNESS OF BREATH HPI: HPI: Patient is a 71 year old female with history of diabetes type 2, hypertension, asthma, COPD currently not a smoker, lung cancer treated with chemo and radiation 1 year ago who presents the ED today complaining of shortness of breath that has been going on for 3 weeks. Patient said he went to see his leather stitcher and was noted to be in A. fib. He was instructed to come to the ED. Patient states symptoms are worse on exertion. Patient denies any chest pain. Patient denies any fever, denies any unusual coughing or congestion. (ISAAC CA DIRECTOR PHARMACOVIGILANCE) Review of Systems: Review of Systems: Constitutional: Denies fever or chills. [] Eyes: Denies change in visual acuity. [] HENT: Denies nasal congestion or sore throat. [] Respiratory: Reports shortness of breath, denies coughing Cardiovascular: Reports new onset of A. fib denies chest pain or edema. [] GI: Denies abdominal pain, nausea, vomiting, bloody stools or diarrhea. [] : Denies dysuria. [] Musculoskeletal: Denies back pain or joint pain. [] Integument: Denies rash. [] Neurologic: Denies headache, focal weakness or sensory changes. [] Psychiatric: Denies depression or anxiety. [] (ISAAC CA DIRECTOR PHARMACOVIGILANCE) Heart Score: C/O Chest Pain: N/A Risk Factors: Risk Factors: DM, Current or recent (<one month) smoker, HTN, HLP, family history of CAD, obesity. Risk Scores: Score 0 - 3: 2.5% MACE over next 6 weeks - Discharge Home Score 4 - 6: 20.3% MACE over next 6 weeks - Admit for Clinical Observation Score 7 - 10: 72.7% MACE over next 6 weeks - Early Invasive Strategies (ISAAC CA DIRECTOR PHARMACOVIGILANCE) Allergies: Allergies: Allergies Coded Allergies Type Severity Reaction Last Updated Verified No Known Drug Allergies 11/26/19 No (ISAAC CA Tracy DIRECTOR PHARMACOVIGILANCE) Physical Exam: PE: Constitutional: Well developed, well nourished, no acute distress, non-toxic appearance. [] HENT: Normocephalic, atraumatic, bilateral external ears normal, oropharynx moist, no oral exudates, nose normal. [] Eyes: PERRLA, EOMI, conjunctiva normal, no discharge. [] Neck: Normal range of motion, no tenderness, supple, no stridor. [] Cardiovascular:Heart rate regular rhythm, no murmur [] Lungs & Thorax: Scattered wheezing Abdomen: Bowel sounds normal, soft, no tenderness, no masses, no pulsatile masses. [] Skin: Warm, dry, no erythema, no rash. [] Back: No tenderness, no CVA tenderness. [] Extremities: No tenderness, no cyanosis, no clubbing, ROM intact, no edema. [] Neurologic: Alert and oriented X 3, normal motor function, normal sensory function, no focal deficits noted. [] Psychologic: Affect normal, judgement normal, mood normal. [] (ISAAC CA Tracy DIRECTOR PHARMACOVIGILANCE) Current Patient Data: Labs: Laboratory Tests Test 06/22/21 16:30 06/22/21 16:50 06/22/21 20:48 White Blood Count 7.7 x10^3/uL (4.0-11.0) Red Blood Count 4.16 x10^6/uL (3.50-5.40) Hemoglobin 11.5 g/dL (12.0-15.5) L Hematocrit 36.8 % (36.0-47.0) Mean Corpuscular Volume 88 fL (79-100) Mean Corpuscular Hemoglobin 28 pg (25-35) Mean Corpuscular Hemoglobin Concent 31 g/dL (31-37) Red Cell Distribution Width 17.3 % (11.5-14.5) H Platelet Count 147 x10^3/uL (140-400) Neutrophils (%) (Auto) 77 % (31-73) H Lymphocytes (%) (Auto) 14 % (24-48) L Monocytes (%) (Auto) 8 % (0-9) Eosinophils (%) (Auto) 1 % (0-3) Basophils (%) (Auto) 0 % (0-3) Neutrophils # (Auto) 5.9 x10^3/uL (1.8-7.7) Lymphocytes # (Auto) 1.1 x10^3/uL (1.0-4.8) Monocytes # (Auto) 0.6 x10^3/uL (0.0-1.1) Eosinophils # (Auto) 0.1 x10^3/uL (0.0-0.7) Basophils # (Auto) 0.0 x10^3/uL (0.0-0.2) Sodium Level 144 mmol/L (136-145) Potassium Level 3.2 mmol/L (3.5-5.1) L Chloride Level 105 mmol/L (98-107) Carbon Dioxide Level 31 mmol/L (21-32) Anion Gap 8 (6-14) Blood Urea Nitrogen 18 mg/dL (7-20) Creatinine 1.0 mg/dL (0.6-1.0) Estimated GFR (Cockcroft-Gault) 66.1 BUN/Creatinine Ratio 18 (6-20) Glucose Level 158 mg/dL (70-99) H Lactic Acid Level 1.5 mmol/L (0.4-2.0) Calcium Level 8.6 mg/dL (8.5-10.1) Magnesium Level 1.9 mg/dL (1.8-2.4) Total Bilirubin 0.5 mg/dL (0.2-1.0) Aspartate Amino Transferase (AST) 18 U/L (15-37) Alanine Aminotransferase (ALT) 31 U/L (14-59) Alkaline Phosphatase 117 U/L (46-116) H Troponin I High Sensitivity 40 ng/L (4-50) 40 ng/L (4-50) FD-Muo-F-Type Natriuretic Peptide 852 pg/mL (0-124) H Total Protein 6.7 g/dL (6.4-8.2) Albumin 3.2 g/dL (3.4-5.0) L Albumin/Globulin Ratio 0.9 (1.0-1.7) L Laboratory Tests 06/22/21 16:30 Laboratory Tests 06/22/21 16:50 Vital Signs: Vital Signs Date Time Temp Pulse Resp B/P (MAP) Pulse Ox O2 Delivery O2 Flow Rate FiO2 11/30/21 21:00 56 32 124/65 (84) 97 2.0 06/22/21 20:34 Nasal Cannula 06/22/21 16:30 98.7 98.7 (ISAAC CA DIRECTOR PHARMACOVIGILANCE) EKG: EK interpreted by Dr. Jerel Ch fib with incomplete left bundle branch pattern, heart rate 88, no STEMI [] (ISAAC CA DIRECTOR PHARMACOVIGILANCE) Radiology/Procedures: Radiology/Procedures: []PROCEDURE: PORTABLE CHEST 1V XR CHEST 1V INDICATION: SOA . COMPARISON STUDY: CT chest 10/20/2020. FINDINGS: Lungs: Normal lung volume. Left upper lung opacities and volume loss. No new consolidation. Pleura: No pleural effusion or pneumothorax. Heart and Mediastinum: Cardiomegaly. The great vessels of the thorax are normal. IMPRESSION: Left upper lung opacities and volume loss at site of patient's previously treated lung cancer. No new consolidation. Electronically signed by: Colette Cardoso MD (06/22/2021 5:55 PM) [facility] DICTATED and SIGNED BY: COLETTE CARDOSO MD DATE: 06/22/21 [id number] (ISAAC CA DIRECTOR PHARMACOVIGILANCE) Course & Med Decision Making: Course & Med Decision Making Pertinent Labs and Imaging studies reviewed. (See chart for details) This is a 71-year-old female patient presenting to the ED today complaining of shortness of breath for 3 weeks and new onset of A. fib that was diagnosed by a leather stitcher as an outpatient today. Patient is currently on oxygen 2 L satting 94 to 96%. On room air she is 92%. Temperature 98.7, heart rate 114, respiration 20, blood pressure 126/60. Chest x-ray is negative for any acute findings, CBC with no acute findings, CMP with potassium of 3.2, oral potassium replacement was ordered. Patient refused a Covid test. CTA chest was ordered as well Spoke with Dr. Elkins who accepted patient for admission, cardiology consult also placed. (ISAAC CA DIRECTOR PHARMACOVIGILANCE) Course & Med Decision Making Patients Care and treatment plan provided by ER Nurse Practitioner. I was available for consult. Patient's chart reviewed. (JENNIFER GORE DO) Katharine Disclaimer: Katharine Disclaimer: This electronic medical record was generated, in whole or in part, using a voice recognition dictation system. (ISAAC CA DIRECTOR PHARMACOVIGILANCE) Departure Departure Impression: Primary Impression: Afib Qualified Codes: I48.91 - Unspecified atrial fibrillation Additional Impression: Chest pain Qualified Codes: R07.9 - Chest pain, unspecified Disposition: 09 ADMITTED INPATIENT Condition: STABLE Referrals: DEANDRE KLINE D.O. (PCP) ISAAC CA APRN Jun 22, 2021 22:07 JENNIFER GORE DO Jun 23, 2021 03:48
[2021-06-22] MEDS ORDERED: ACETAMINOPHEN 325 MG TABLET. PO PRN (22:15)
[2021-06-22] MEDS ORDERED: MORPHINE SULFATE 4 MG/ML INJ. IVP PRN (22:15)
[2021-06-22] MEDS ORDERED: ONDANSETRON PF 4 MG/2 ML VIAL. IVP PRN (22:15)
[2021-06-22] MEDS ORDERED: CONTRAST GIVEN. MC PRN (22:30)
[2021-06-22] MEDS ORDERED: IOHEXOL 350 MG/ML 100 ML VIAL. IV ONE (22:30)
--- NOTE | 2021-06-22 23:20 | RAD ---
PQRS Compliance Statement: One or more of the following individualized dose reduction techniques were utilized for this examinat ion: 1. Automated exposure control 2. Adjustment of the mA and/or kV according to patient size 3. Use of iterative reconstruction technique CT CHEST WITH CONTRAST, PULMONARY ANGIOGRAM History: Reason: SOA PE protocol / Comparison: CT chest without contrast October 20, 2020. Technique: Helical CT of the chest was performed after the administration of 100 cc of Omnipaque 350 intravenous contrast according to PE protocol. Axial and coronal reconstructions were obtained. 3- D MIP images were constructed to better evaluate the pulmonary arteries. Findings: Pulmonary arteries are adequately opacified. There is no evidence of pulmonary embolism. There is no thoracic aortic dissection. There is coronary artery disease. There is left atrial enlarg ement. Cardiac size mildly enlarged. No pericardial effusion. There is no mediastinal adenopathy. The central airways are patent. There is mild atelectasis in the right lower lobe. There is stable co nsolidation in the posterior left upper lung at the site of patient's treated neoplasm. No significan t change from prior study. No abnormal enhancement within the consolidation is definitely seen. The visualized upper abdomen is unremarkable. No acute bone abnormality. IMPRESSION: 1. There is no pulmonary embolus. 2. Stable consolidation/post treatment scarring in the posterior left upper lung. Electronically signed by: Vinnie Hanley MD (06/22/2021 11:17 PM) [facility]
[2021-06-23 04:48] LABS: BASO % 0 % (0-3); EOS # 0.1 x10^3/uL (0.0-0.7); EOS % 2 % (0-3); HEMATOCRIT 38.1 % (36.0-47.0); HEMOGLOBIN 11.7 g/dL (12.0-15.5); LYMPH # 1.1 x10^3/uL (1.0-4.8); LYMPH % 19 % (24-48); MEAN CORPUSCULAR HEMOGLOBIN 27 pg (25-35); MEAN CORPUSCULAR HGB CONC 31 g/dL (31-37); MEAN CORPUSCULAR VOLUME 89 fL (79-100); MONO # 0.6 x10^3/uL (0.0-1.1); MONO % 11 % (0-9); NEUT # 4.1 x10^3/uL (1.8-7.7); NEUT % 69 % (31-73); PLATELET COUNT 147 x10^3/uL (140-400); RED BLOOD COUNT 4.29 x10^6/uL (3.50-5.40); RED CELL DISTRIBUTION WIDTH 17.6 % (11.5-14.5); WHITE BLOOD COUNT 5.9 x10^3/uL (4.0-11.0)
[2021-06-23 05:05] LABS: ALBUMIN 3.3 g/dL (3.4-5.0); ALBUMIN/GLOBULIN RATIO 0.9 (1.0-1.7); CALCIUM 8.7 mg/dL (8.5-10.1); GFR 66.1; POTASSIUM 3.3 mmol/L (3.5-5.1); TOTAL BILIRUBIN 0.5 mg/dL (0.2-1.0); TOTAL PROTEIN 6.8 g/dL (6.4-8.2)
[2021-06-23] MEDS ORDERED: POTASSIUM CHLORIDE 20 MEQ TABLET.ER. PO ONE (07:45)
[2021-06-23] MEDS ORDERED: ACETAMINOPHEN 325 MG TABLET. PO PRN (07:45)
[2021-06-23] MEDS ORDERED: oxyCODONE/APAP 5/325 1 TAB TABLET PO PRN (07:45)
[2021-06-23] MEDS ORDERED: ELECTROLYTE (NON-ICU) PROTOCOL. MC PRN (07:45)
[2021-06-23] MEDS ORDERED: ONDANSETRON PF 4 MG/2 ML VIAL. IVP PRN (07:45)
[2021-06-23] MEDS ORDERED: CALCIUM CARBONATE 500 MG TAB.CHEW PO PRN (07:45)
[2021-06-23] MEDS ORDERED: CYCLOBENZAPRINE 10 MG TABLET. PO PRN (08:00)
[2021-06-23] MEDS ORDERED: ALBUTEROL SULFATE 2.5 MG/3 ML NEBU. NEB PRN (08:00)
[2021-06-23] MEDS: PANTOPRAZOLE 40 MG TABLET.DR. PO SCH (08:19)
[2021-06-23] MEDS: ASPIRIN ENTERIC COATED 81 MG TABLET.DR. PO SCH (08:20)
[2021-06-23] MEDS: FUROSEMIDE 40 MG TABLET. PO SCH (08:20)
[2021-06-23] MEDS: SPIRONOLACTONE 25 MG TABLET PO SCH (08:20)
[2021-06-23] MEDS: SENNOSIDES/DOCUSATE 8.6/50MG TABLET. PO SCH ×2 (08:22→21:45)
[2021-06-23] MEDS: IPRATRPIUM/ALBUTEROL 0.5/2.5MG 3 ML NEBU. NEB SCH ×4 (08:23→18:53)
[2021-06-23 08:32] LABS: BILIRUBIN,URINE NEGATIVE (NEG); CLARITY,URINE CLEAR; COLOR,URINE YELLOW; NITRITE,URINE NEGATIVE (NEG); PH,URINE 5.5 (<5.0-8.0); PROTEIN,URINE NEGATIVE (NEG-TRACE); UROBILINOGEN,URINE 0.2 mg/dL (0.2 mg/dL)
[2021-06-23 08:40] LABS: BACTERIA,URINE 0 /HPF (0-FEW); RBC,URINE 0 /HPF (0-2); WBC,URINE OCC /HPF (0-4)
[2021-06-23] MEDS ORDERED: glipiZIDE 5 MG TABLET PO SCH (09:00)
--- NOTE | 2021-06-23 10:30 | PDOC2 ---
ANITA DAVID SHAKIRA 06/23/21 1030: CARDIAC CONSULT DATE OF CONSULT Date of Consult DATE: 06/23/21 TIME: 10:27 REASON FOR CONSULT Reason for Consult: AFIB REFERRING PHYSICIAN Referring Physician: Kristal Bullard APRN SOURCE Source: Chart review, Patient HISTORY OF PRESENT ILLNESS HISTORY OF PRESENT ILLNESS This is a 71 yo female who presented secondary to AFIB. Patient reports shortness of breath x3 weeks. Had referral to fork repairer Dr. Stevens yesterday at [facility] due to shortness of breath. Was noted in AFIB and referred to the ED for further evaluation and treatment. Patient converted back to SR overnight and is feeling much better this morning. She denies any dizziness, diaphoresis, chest pain, or palpitations. No prior h/o CAD or arrhythmias. Does have a history of SIMRAN and is intolerant to CPAP. PAST MEDICAL HISTORY Cardiovascular: HTN, Hyperlipidemia, Other (murmur ) Pulmonary: Other (SIMRAN) GI: GERD Heme/Onc: Anemia NOS, Cancer (lung, s/p chemo and radiation ) Psych: Depression Musculoskeletal: Osteoarthritis Endocrine: Diabetes PAST SURGICAL HISTORY Past Surgical History: Tubal Ligation, Hysterectomy FAMILY HISTORY Family History: Diabetes, Hypertension SOCIAL HISTORY Smoke: Quit ALCOHOL: none Drugs: None Lives: Alone CURRENT MEDICATIONS CURRENT MEDICATIONS Current Medications Medications (Trade) Dose Ordered Sig/[place] Route PRN Reason Start Time Stop Time Status Last Admin Dose Admin Acetaminophen (Tylenol) 650 mg PRN Q4HRS PRN PO FEVER > 100.3'F 06/22/21 22:15 06/23/21 07:46 DC 06/23/21 01:29 Iohexol (Omnipaque 350 Mg/ml) 100 ml 1X ONCE IV 06/22/21 22:30 06/22/21 22:32 DC 06/22/21 22:30 Potassium Chloride (Klor-Con) 40 meq 1X ONCE PO 06/23/21 07:45 06/23/21 07:46 DC 06/23/21 08:19 Aspirin (Ecotrin) 81 mg DAILY PO 06/23/21 09:00 06/23/21 08:20 Furosemide (Lasix) 40 mg DAILY PO 06/23/21 09:00 06/23/21 08:20 Spironolactone (Aldactone) 12.5 mg DAILY PO 06/23/21 09:00 06/23/21 08:20 Amlodipine Besylate (Norvasc) 2.5 mg DAILY PO 06/23/21 09:00 06/23/21 08:22 Pantoprazole Sodium (Protonix) 40 mg DAILYAC PO 06/23/21 08:00 06/23/21 08:19 Senna/Docusate Sodium (Senna Plus) 1 tab BID PO 06/23/21 09:00 06/23/21 08:22 Enoxaparin Sodium (Lovenox 100mg Syringe) 100 mg 1X ONCE SQ 06/23/21 08:00 06/23/21 08:01 DC 06/23/21 08:19 ALLERGIES ALLERGIES: Coded Allergies: No Known Drug Allergies (Unverified , 11/26/19) ROS Review of System 14 point ROS conducted with pertinent positives noted above in HPI PHYSICAL EXAM General: Alert, Oriented X3, Cooperative, No acute distress HEENT: Atraumatic Lungs: Other (diminished bases) Heart: Regular rate (SR) Abdomen: Soft, Other (obese) Extremities: Other (trace bilateral LE edema ) Skin: No significant lesion Neuro: Normal speech, Sensation intact Psych/Mental Status: Mental status NL, Mood NL MUSCULOSKELETAL: Osteoarthritic changes both hands VITALS/I&O VITALS/I&O: Vital Signs Date Time Temp Pulse Resp B/P (MAP) Pulse Ox O2 Delivery O2 Flow Rate FiO2 06/23/21 08:34 68 19 145/64 (91) 90 Nasal Cannula 2.0 06/22/21 16:30 98.7 98.7 LABS Lab: Laboratory Tests Test 06/22/21 16:30 06/22/21 16:50 06/22/21 20:48 06/22/21 22:45 White Blood Count 7.7 x10^3/uL (4.0-11.0) Red Blood Count 4.16 x10^6/uL (3.50-5.40) Hemoglobin 11.5 g/dL (12.0-15.5) L Hematocrit 36.8 % (36.0-47.0) Mean Corpuscular Volume 88 fL (79-100) Mean Corpuscular Hemoglobin 28 pg (25-35) Mean Corpuscular Hemoglobin Concent 31 g/dL (31-37) Red Cell Distribution Width 17.3 % (11.5-14.5) H Platelet Count 147 x10^3/uL (140-400) Neutrophils (%) (Auto) 77 % (31-73) H Lymphocytes (%) (Auto) 14 % (24-48) L Monocytes (%) (Auto) 8 % (0-9) Eosinophils (%) (Auto) 1 % (0-3) Basophils (%) (Auto) 0 % (0-3) Neutrophils # (Auto) 5.9 x10^3/uL (1.8-7.7) Lymphocytes # (Auto) 1.1 x10^3/uL (1.0-4.8) Monocytes # (Auto) 0.6 x10^3/uL (0.0-1.1) Eosinophils # (Auto) 0.1 x10^3/uL (0.0-0.7) Basophils # (Auto) 0.0 x10^3/uL (0.0-0.2) Sodium Level 144 mmol/L (136-145) Potassium Level 3.2 mmol/L (3.5-5.1) L Chloride Level 105 mmol/L (98-107) Carbon Dioxide Level 31 mmol/L (21-32) Anion Gap 8 (6-14) Blood Urea Nitrogen 18 mg/dL (7-20) Creatinine 1.0 mg/dL (0.6-1.0) Estimated GFR (Cockcroft-Gault) 66.1 BUN/Creatinine Ratio 18 (6-20) Glucose Level 158 mg/dL (70-99) H Lactic Acid Level 1.5 mmol/L (0.4-2.0) Calcium Level 8.6 mg/dL (8.5-10.1) Magnesium Level 1.9 mg/dL (1.8-2.4) Total Bilirubin 0.5 mg/dL (0.2-1.0) Aspartate Amino Transferase (AST) 18 U/L (15-37) Alanine Aminotransferase (ALT) 31 U/L (14-59) Alkaline Phosphatase 117 U/L (46-116) H Troponin I High Sensitivity 40 ng/L (4-50) 40 ng/L (4-50) 43 ng/L (4-50) TC-Nnb-H-Type Natriuretic Peptide 852 pg/mL (0-124) H Total Protein 6.7 g/dL (6.4-8.2) Albumin 3.2 g/dL (3.4-5.0) L Albumin/Globulin Ratio 0.9 (1.0-1.7) L Test 06/23/21 04:25 White Blood Count 5.9 x10^3/uL (4.0-11.0) Red Blood Count 4.29 x10^6/uL (3.50-5.40) Hemoglobin 11.7 g/dL (12.0-15.5) L Hematocrit 38.1 % (36.0-47.0) Mean Corpuscular Volume 89 fL (79-100) Mean Corpuscular Hemoglobin 27 pg (25-35) Mean Corpuscular Hemoglobin Concent 31 g/dL (31-37) Red Cell Distribution Width 17.6 % (11.5-14.5) H Platelet Count 147 x10^3/uL (140-400) Neutrophils (%) (Auto) 69 % (31-73) Lymphocytes (%) (Auto) 19 % (24-48) L Monocytes (%) (Auto) 11 % (0-9) H Eosinophils (%) (Auto) 2 % (0-3) Basophils (%) (Auto) 0 % (0-3) Neutrophils # (Auto) 4.1 x10^3/uL (1.8-7.7) Lymphocytes # (Auto) 1.1 x10^3/uL (1.0-4.8) Monocytes # (Auto) 0.6 x10^3/uL (0.0-1.1) Eosinophils # (Auto) 0.1 x10^3/uL (0.0-0.7) Basophils # (Auto) 0.0 x10^3/uL (0.0-0.2) Sodium Level 147 mmol/L (136-145) H Potassium Level 3.3 mmol/L (3.5-5.1) L Chloride Level 106 mmol/L (98-107) Carbon Dioxide Level 32 mmol/L (21-32) Anion Gap 9 (6-14) Blood Urea Nitrogen 17 mg/dL (7-20) Creatinine 1.0 mg/dL (0.6-1.0) Estimated GFR (Cockcroft-Gault) 66.1 BUN/Creatinine Ratio 17 (6-20) Glucose Level 136 mg/dL (70-99) H Calcium Level 8.7 mg/dL (8.5-10.1) Total Bilirubin 0.5 mg/dL (0.2-1.0) Aspartate Amino Transferase (AST) 20 U/L (15-37) Alanine Aminotransferase (ALT) 29 U/L (14-59) Alkaline Phosphatase 112 U/L (46-116) Total Protein 6.8 g/dL (6.4-8.2) Albumin 3.3 g/dL (3.4-5.0) L Albumin/Globulin Ratio 0.9 (1.0-1.7) L Laboratory Tests 06/22/21 16:30 06/23/21 04:25 Laboratory Tests 06/22/21 16:50 06/23/21 04:25 ECHOCARDIOGRAM ECHOCARDIOGRAM <Conclusion> The left ventricle systolic function is normal. The Ejection Fraction is 70-75%. There is normal LV segmental wall motion. The left atrium is mildly dilated. Mild aortic regurgitation. Trace mitral regurgitation. Trace tricuspid regurgitation. There is modoerate pulmonary hypertension. PASP is 59mmHg. There is no evidence of significant pericardial effusion. DATE: 11/15/17 1606 ASSESSMENT/PLAN ASSESSMENT/PLAN 1. New onset AFIB; converted back to SR 2. Obesity, SIMRAN intolerant to CPAP 3. Hypertension; controlled 4. Hyperlipidemia; statin 5. Diabetes, II 6. H/o lung CA s/p chemo and radiation 7. Hypokalemia; replaced Recommendations Echo to assess LV systolic function TSH Add metoprolol for rate control [id number] 4 correlating with a 4.8% risk of stroke per year. Recommend Eliquis for stroke prophylaxis Outpatient event monitor to guide therapy Consider outpatient ischemic evaluation Supportive care REBECCA JOLLY MD 06/23/212103: CARDIAC CONSULT ASSESSMENT/PLAN ASSESSMENT/PLAN Patient seen and examined. Agree with BARREL STRAIGHTENER's assessment and plan. Atrial fibrillation, newly diagnosed presently back in SR Agree with metoprolol for rate control and eliquis for stroke prophylaxis Check 2D echo to assess LVF Plan outpatient event monitor and ischemic evaluation Thank you for your consultation ANITA DAVID APRN Jun 23, 2021 10:30 REBECCA JOLLY MD Jun 23, 2021 21:04
[2021-06-23 10:53] LABS: CHOLESTEROL/HDL RATIO 2.1
--- NOTE | 2021-06-23 11:13 | PDOC1 ---
History and Physical Date of Service: DOS: DATE: 06/23/21 TIME: 11:06 Chief Complaint: Chief Complain: SOB History of Present Illness: HPI: Patient is a 71 year old female with history of diabetes type 2, hypertension, asthma, COPD currently not a smoker, lung cancer treated with chemo and radiation 1 year ago who presented to the ED overnight complaining of shortness of breath for last 2-3 weeks.. Patient said she went to see her own doctor and was noted to be in A. fib. Was then instructed to come to the ED. Patient states symptoms are worse on exertion. Patient denies any chest pain. Patient denies any fever, denies any unusual coughing or congestion. Patient denies Past Medical/Surgical History: PMH/PSH: Past Medical History: Asthma, Diabetes-Type II, Hypertension Additional Past Medical Histor: Lung cancer s/p chemo Allergies: Allergies: Coded Allergies: No Known Drug Allergies (Unverified , 11/26/19) Family History: Family History: HTN, DM Social History: Social History: former smoker; denies aslcohol drug use Current Medications: Current Medications Current Medications Ondansetron HCl (Zofran) 4 mg PRN Q8HRS PRN IVP NAUSEA/VOMITING; Start 06/22/21 at 22:15; Stop 06/23/21 at 07:47; Status DC Morphine Sulfate (Morphine Sulfate) 4 mg PRN Q2HR PRN IVP PAIN; Start 06/22/21 at 22:15; Stop 06/23/21 at 22:14 Acetaminophen (Tylenol) 650 mg PRN Q4HRS PRN PO FEVER > 100.3'F Last administered on 06/23/21at 01:29; Start 06/22/21 at 22:15; Stop 06/23/21 at 07:46; Status DC Albuterol/ Ipratropium (Duoneb) 3 ml RTQID NEB ; Start 06/23/21 at 08:00; Stop 06/24/21 at 07:59 Iohexol (Omnipaque 350 Mg/ml) 100 ml 1X ONCE IV Last administered on 06/22/21at 22:30; Start 06/22/21 at 22:30; Stop 06/22/21 at 22:32; Status DC Info (CONTRAST GIVEN -- Rx MONITORING) 1 each PRN DAILY PRN MC SEE COMMENTS; Start 06/22/21 at 22:30; Stop 06/24/21 at 22:29 Potassium Chloride (Klor-Con) 40 meq 1X ONCE PO Last administered on 06/23/21at 08:19; Start 06/23/21 at 07:45; Stop 06/23/21 at 07:46; Status DC Aspirin (Ecotrin) 81 mg DAILY PO Last administered on 06/23/21at 08:20; Start 06/23/21 at 09:00 Atorvastatin Calcium (Lipitor) 10 mg QHS PO ; Start 06/23/21 at 21:00 Furosemide (Lasix) 40 mg DAILY PO Last administered on 06/23/21at 08:20; Start 06/23/21 at 09:00 Glipizide (Glucotrol) 5 mg BID PO ; Start 06/23/21 at 09:00 Montelukast Sodium (Singulair) 10 mg HS PO ; Start 06/23/21 at 21:00 Spironolactone (Aldactone) 12.5 mg DAILY PO Last administered on 06/23/21at 08:20; Start 06/23/21 at 09:00 Zolpidem Tartrate (Ambien) 5 mg PRN QHS PRN PO INSOMNIA; Start 06/23/21 at 07:45 Albuterol Sulfate (Ventolin Neb Soln) 2.5 mg PRN Q6HRS PRN NEB SHORTNESS OF BREATH; Start 06/23/21 at 08:00 Amlodipine Besylate (Norvasc) 2.5 mg DAILY PO Last administered on 06/23/21at 08:22; Start 06/23/21 at 09:00 Pantoprazole Sodium (Protonix) 40 mg DAILYAC PO Last administered on 06/23/21at 08:19; Start 06/23/21 at 08:00 Cyclobenzaprine HCl (Flexeril) 10 mg PRN Q6HRS PRN PO MUSCLE SPASMS; Start 06/23/21 at 08:00 Ondansetron HCl (Zofran) 4 mg PRN Q6HRS PRN IVP NAUSEA/VOMITING; Start 06/23/21 at 07:45 Calcium Carbonate/ Glycine (Tums) 500 mg PRN Q3HRS PRN PO UPSET STOMACH; Start 06/23/21 at 07:45 Info (Non-Icu Electrolyte Protocol) 1 ea PRN DAILY PRN MC SEE COMMENTS; Start 06/23/21 at 07:45 Oxycodone/ Acetaminophen (Percocet 5/325) 1 tab PRN Q4HRS PRN PO MILD PAIN, 1ST CHOICE; Start 06/23/21 at 07:45 Oxycodone/ Acetaminophen (Percocet 5/325) 2 tab PRN Q4HRS PRN PO MODERATE PAIN, SEVERE PAIN; Start 06/23/21 at 07:45 Acetaminophen (Tylenol) 650 mg PRN Q6HRS PRN PO Headaches, Temp > 101.5F; Start 06/23/21 at 07:45 Senna/Docusate Sodium (Senna Plus) 1 tab BID PO Last administered on 06/23/21at 08:22; Start 06/23/21 at 09:00 Enoxaparin Sodium (Lovenox 100mg Syringe) 100 mg 1X ONCE SQ Last administered on 06/23/21at 08:19; Start 06/23/21 at 08:00; Stop 06/23/21 at 08:01; Status DC Active Scripts Active Orphenadrine Citrate 100 Mg Tablet.er 1 Tab PO BID PRN [place] 5-325 Tablet (Acetaminophen/Hydrocodone Bitart) 1 Each Tablet 1-2 Each PO PRN Q6HRS PRN as needed for pain Reported Cold & Flu Relief Multi-Sym Lq (Diphenhydra/Phenyleph/Acetamin) 180 Ml Liquid 180 Ml PO PRN PRN Montelukast Sodium Tablet (Montelukast Sodium) 10 Mg Tablet 10 Mg PO HS Calcium 600 + Vit D3 Caplet (Calcium Carbonate/Vitamin D3) 1 Each Tablet 1 Tab PO DAILY 30 Days Fish Oil 1,200 mg Softgel ([place]-3/Dha/Epa/Fish Oil) 1 Each Capsule. 1 Cap PO DAILY 30 Days Tramadol Hcl 50 Mg Tablet 50 Mg PO Q6HRS PRN Ambien (Zolpidem Tartrate) 5 Mg Tablet 5 Mg PO PRN QHS PRN Atorvastatin Calcium 10 Mg Tablet 1 Tab PO DAILY Aspirin Ec (Aspirin) 81 Mg Tablet.dr 1 Tab PO DAILY Vitamin B-12 (Cyanocobalamin (Vitamin B-12)) 1,000 Mcg Tablet 1 Tab PO DAILY Omeprazole 40 Mg Capsule. 1 Cap PO DAILY Furosemide 40 Mg Tablet 1 Tab PO DAILY Ventolin Hfa Inhaler (Albuterol Sulfate) 18 Gm Hfa.aer.ad 2 Puff INH QIDPRN Percocet 7.5-325 Mg Tablet (Oxycodone/Acetaminophen) 1 Each Tablet 1 Tab PO PRN Q6HRS PRN Amlodipine Besylate 2.5 Mg Tablet 2.5 Mg PO DAILY Zolpidem Tartrate 5 Mg Tablet 5 Mg PO PRN QHS PRN Tessalon Perle (Benzonatate) 100 Mg Capsule 100 Mg PO TID PRN Glipizide 5 Mg Tablet 1 Tab PO BID Potassium Chloride (Potassium Chloride) 10 Meq Tab.sr.24h 10 Meq PO DAILY Spironolactone 25 Mg Tablet 0.5 Tab PO DAILY ROS: Review of Systems Review of System Unless noted in HPI 14 point review of systems was negative Physical Exam: Vital Signs: Vital Signs Date Time Temp Pulse Resp B/P (MAP) Pulse Ox O2 Delivery O2 Flow Rate FiO2 06/23/21 10:34 62 20 139/75 (96) 94 Nasal Cannula 2.0 06/22/21 16:30 98.7 98.7 Physcial Exam: GEN: No apparent distress. Alert and oriented obese HEENT: Normal cephalic, atraumatic, external auditory canals are patent EYES: Extraocular muscles are intact, pupil are equally round and reactive to light and accommodation MUSCULOSKELETAL: Well developed , well nourished, good range of motion ENDOCRINE: No thyromegaly was palpated LYMPHATICS: No cervical chain or axillary nodes were noted HEMATOPOIETIC: No bruising NECK: Supple, no JVD, no thyromegaly was noted LUNGS: Clear to auscultation in all lung ocasio without rhonchi or wheezing HEART: Irregularly irregular S1, S2 present. Peripheral pulses intact, no obvious murmurs noted ABDOMEN: Soft, nontender. Positive bowel sounds, no organomegaly, normal bowel sounds EXTREMITIES: Without clubbing, cyanosis, or edema. Pedal pulses intact. Negative Homans sign NEUROLOGIC: Normal speech and tone. A&O x 3, moves all extremities, no obvious focal deficits PSYCHIATRIC: Normal affect, normal mood. Stable SKIN: No ulcerations or rashes, good skin turgor, no jaundice VASCULAR: Good capillary refill, neurovascular bundle appears to be intact Labs: Labs: Laboratory Tests Test 06/22/21 08:00 06/22/21 16:30 06/22/21 16:50 06/22/21 20:48 Urine Collection Type Unknown Urine Color Yellow Urine Clarity Clear Urine pH 5.5 (<5.0-8.0) Urine Specific Neal >=1.030 (1.000-1.030) Urine Protein Negative mg/dL (NEG-TRACE) Urine Glucose (UA) Negative mg/dL (NEG) Urine Ketones (Stick) Negative mg/dL (NEG) Urine Blood Negative (NEG) Urine Nitrite Negative (NEG) Urine Bilirubin Negative (NEG) Urine Urobilinogen Dipstick 0.2 mg/dL (0.2 mg/dL) Urine Leukocyte Esterase Negative (NEG) Urine RBC 0 /HPF (0-2) Urine WBC Occ /HPF (0-4) Urine Squamous Epithelial Cells Few /LPF Urine Bacteria 0 /HPF (0-FEW) White Blood Count 7.7 x10^3/uL (4.0-11.0) Red Blood Count 4.16 x10^6/uL (3.50-5.40) Hemoglobin 11.5 g/dL (12.0-15.5) Hematocrit 36.8 % (36.0-47.0) Mean Corpuscular Volume 88 fL (79-100) Mean Corpuscular Hemoglobin 28 pg (25-35) Mean Corpuscular Hemoglobin Concent 31 g/dL (31-37) Red Cell Distribution Width 17.3 % (11.5-14.5) Platelet Count 147 x10^3/uL (140-400) Neutrophils (%) (Auto) 77 % (31-73) Lymphocytes (%) (Auto) 14 % (24-48) Monocytes (%) (Auto) 8 % (0-9) Eosinophils (%) (Auto) 1 % (0-3) Basophils (%) (Auto) 0 % (0-3) Neutrophils # (Auto) 5.9 x10^3/uL (1.8-7.7) Lymphocytes # (Auto) 1.1 x10^3/uL (1.0-4.8) Monocytes # (Auto) 0.6 x10^3/uL (0.0-1.1) Eosinophils # (Auto) 0.1 x10^3/uL (0.0-0.7) Basophils # (Auto) 0.0 x10^3/uL (0.0-0.2) Sodium Level 144 mmol/L (136-145) Potassium Level 3.2 mmol/L (3.5-5.1) Chloride Level 105 mmol/L (98-107) Carbon Dioxide Level 31 mmol/L (21-32) Anion Gap 8 (6-14) Blood Urea Nitrogen 18 mg/dL (7-20) Creatinine 1.0 mg/dL (0.6-1.0) Estimated GFR (Cockcroft-Gault) 66.1 BUN/Creatinine Ratio 18 (6-20) Glucose Level 158 mg/dL (70-99) Lactic Acid Level 1.5 mmol/L (0.4-2.0) Calcium Level 8.6 mg/dL (8.5-10.1) Magnesium Level 1.9 mg/dL (1.8-2.4) Total Bilirubin 0.5 mg/dL (0.2-1.0) Aspartate Amino Transf (AST/SGOT) 18 U/L (15-37) Alanine Aminotransferase (ALT/SGPT) 31 U/L (14-59) Alkaline Phosphatase 117 U/L (46-116) Troponin I High Sensitivity 40 ng/L (4-50) 40 ng/L (4-50) YD-Xhc-Q-Type Natriuretic Peptide 852 pg/mL (0-124) Total Protein 6.7 g/dL (6.4-8.2) Albumin 3.2 g/dL (3.4-5.0) Albumin/Globulin Ratio 0.9 (1.0-1.7) Test 06/22/21 22:45 06/23/21 04:25 Troponin I High Sensitivity 43 ng/L (4-50) White Blood Count 5.9 x10^3/uL (4.0-11.0) Red Blood Count 4.29 x10^6/uL (3.50-5.40) Hemoglobin 11.7 g/dL (12.0-15.5) Hematocrit 38.1 % (36.0-47.0) Mean Corpuscular Volume 89 fL (79-100) Mean Corpuscular Hemoglobin 27 pg (25-35) Mean Corpuscular Hemoglobin Concent 31 g/dL (31-37) Red Cell Distribution Width 17.6 % (11.5-14.5) Platelet Count 147 x10^3/uL (140-400) Neutrophils (%) (Auto) 69 % (31-73) Lymphocytes (%) (Auto) 19 % (24-48) Monocytes (%) (Auto) 11 % (0-9) Eosinophils (%) (Auto) 2 % (0-3) Basophils (%) (Auto) 0 % (0-3) Neutrophils # (Auto) 4.1 x10^3/uL (1.8-7.7) Lymphocytes # (Auto) 1.1 x10^3/uL (1.0-4.8) Monocytes # (Auto) 0.6 x10^3/uL (0.0-1.1) Eosinophils # (Auto) 0.1 x10^3/uL (0.0-0.7) Basophils # (Auto) 0.0 x10^3/uL (0.0-0.2) Sodium Level 147 mmol/L (136-145) Potassium Level 3.3 mmol/L (3.5-5.1) Chloride Level 106 mmol/L (98-107) Carbon Dioxide Level 32 mmol/L (21-32) Anion Gap 9 (6-14) Blood Urea Nitrogen 17 mg/dL (7-20) Creatinine 1.0 mg/dL (0.6-1.0) Estimated GFR (Cockcroft-Gault) 66.1 BUN/Creatinine Ratio 17 (6-20) Glucose Level 136 mg/dL (70-99) Calcium Level 8.7 mg/dL (8.5-10.1) Total Bilirubin 0.5 mg/dL (0.2-1.0) Aspartate Amino Transf (AST/SGOT) 20 U/L (15-37) Alanine Aminotransferase (ALT/SGPT) 29 U/L (14-59) Alkaline Phosphatase 112 U/L (46-116) Total Protein 6.8 g/dL (6.4-8.2) Albumin 3.3 g/dL (3.4-5.0) Albumin/Globulin Ratio 0.9 (1.0-1.7) Triglycerides Level 77 mg/dL (0-150) Cholesterol Level 141 mg/dL (0-200) LDL Cholesterol, Calculated 60 mg/dL (0-100) VLDL Cholesterol, Calculated 15 mg/dL (0-40) Non-HDL Cholesterol Calculated 75 mg/dL (0-129) HDL Cholesterol 66 mg/dL (40-60) Cholesterol/HDL Ratio 2.1 Thyroid Stimulating Hormone (TSH) 1.102 uIU/mL (0.358-3.74) Laboratory Tests Test 06/22/21 16:30 06/22/21 16:50 06/22/21 20:48 06/22/21 22:45 White Blood Count 7.7 x10^3/uL (4.0-11.0) Red Blood Count 4.16 x10^6/uL (3.50-5.40) Hemoglobin 11.5 g/dL (12.0-15.5) Hematocrit 36.8 % (36.0-47.0) Mean Corpuscular Volume 88 fL (79-100) Mean Corpuscular Hemoglobin 28 pg (25-35) Mean Corpuscular Hemoglobin Concent 31 g/dL (31-37) Red Cell Distribution Width 17.3 % (11.5-14.5) Platelet Count 147 x10^3/uL (140-400) Neutrophils (%) (Auto) 77 % (31-73) Lymphocytes (%) (Auto) 14 % (24-48) Monocytes (%) (Auto) 8 % (0-9) Eosinophils (%) (Auto) 1 % (0-3) Basophils (%) (Auto) 0 % (0-3) Neutrophils # (Auto) 5.9 x10^3/uL (1.8-7.7) Lymphocytes # (Auto) 1.1 x10^3/uL (1.0-4.8) Monocytes # (Auto) 0.6 x10^3/uL (0.0-1.1) Eosinophils # (Auto) 0.1 x10^3/uL (0.0-0.7) Basophils # (Auto) 0.0 x10^3/uL (0.0-0.2) Sodium Level 144 mmol/L (136-145) Potassium Level 3.2 mmol/L (3.5-5.1) Chloride Level 105 mmol/L (98-107) Carbon Dioxide Level 31 mmol/L (21-32) Anion Gap 8 (6-14) Blood Urea Nitrogen 18 mg/dL (7-20) Creatinine 1.0 mg/dL (0.6-1.0) Estimated GFR (Cockcroft-Gault) 66.1 BUN/Creatinine Ratio 18 (6-20) Glucose Level 158 mg/dL (70-99) Lactic Acid Level 1.5 mmol/L (0.4-2.0) Calcium Level 8.6 mg/dL (8.5-10.1) Magnesium Level 1.9 mg/dL (1.8-2.4) Total Bilirubin 0.5 mg/dL (0.2-1.0) Aspartate Amino Transf (AST/SGOT) 18 U/L (15-37) Alanine Aminotransferase (ALT/SGPT) 31 U/L (14-59) Alkaline Phosphatase 117 U/L (46-116) Troponin I High Sensitivity 40 ng/L (4-50) 40 ng/L (4-50) 43 ng/L (4-50) QS-Eos-Q-Type Natriuretic Peptide 852 pg/mL (0-124) Total Protein 6.7 g/dL (6.4-8.2) Albumin 3.2 g/dL (3.4-5.0) Albumin/Globulin Ratio 0.9 (1.0-1.7) Test 06/23/21 04:25 White Blood Count 5.9 x10^3/uL (4.0-11.0) Red Blood Count 4.29 x10^6/uL (3.50-5.40) Hemoglobin 11.7 g/dL (12.0-15.5) Hematocrit 38.1 % (36.0-47.0) Mean Corpuscular Volume 89 fL (79-100) Mean Corpuscular Hemoglobin 27 pg (25-35) Mean Corpuscular Hemoglobin Concent 31 g/dL (31-37) Red Cell Distribution Width 17.6 % (11.5-14.5) Platelet Count 147 x10^3/uL (140-400) Neutrophils (%) (Auto) 69 % (31-73) Lymphocytes (%) (Auto) 19 % (24-48) Monocytes (%) (Auto) 11 % (0-9) Eosinophils (%) (Auto) 2 % (0-3) Basophils (%) (Auto) 0 % (0-3) Neutrophils # (Auto) 4.1 x10^3/uL (1.8-7.7) Lymphocytes # (Auto) 1.1 x10^3/uL (1.0-4.8) Monocytes # (Auto) 0.6 x10^3/uL (0.0-1.1) Eosinophils # (Auto) 0.1 x10^3/uL (0.0-0.7) Basophils # (Auto) 0.0 x10^3/uL (0.0-0.2) Sodium Level 147 mmol/L (136-145) Potassium Level 3.3 mmol/L (3.5-5.1) Chloride Level 106 mmol/L (98-107) Carbon Dioxide Level 32 mmol/L (21-32) Anion Gap 9 (6-14) Blood Urea Nitrogen 17 mg/dL (7-20) Creatinine 1.0 mg/dL (0.6-1.0) Estimated GFR (Cockcroft-Gault) 66.1 BUN/Creatinine Ratio 17 (6-20) Glucose Level 136 mg/dL (70-99) Calcium Level 8.7 mg/dL (8.5-10.1) Total Bilirubin 0.5 mg/dL (0.2-1.0) Aspartate Amino Transf (AST/SGOT) 20 U/L (15-37) Alanine Aminotransferase (ALT/SGPT) 29 U/L (14-59) Alkaline Phosphatase 112 U/L (46-116) Total Protein 6.8 g/dL (6.4-8.2) Albumin 3.3 g/dL (3.4-5.0) Albumin/Globulin Ratio 0.9 (1.0-1.7) Triglycerides Level 77 mg/dL (0-150) Cholesterol Level 141 mg/dL (0-200) LDL Cholesterol, Calculated 60 mg/dL (0-100) VLDL Cholesterol, Calculated 15 mg/dL (0-40) Non-HDL Cholesterol Calculated 75 mg/dL (0-129) HDL Cholesterol 66 mg/dL (40-60) Cholesterol/HDL Ratio 2.1 Thyroid Stimulating Hormone (TSH) 1.102 uIU/mL (0.358-3.74) Assessment/Plan Assessment/Plan Shortness of breath secondary to new onset atrial fibrillation history of lung cancer. History asthma diabetes hypertension -Patient was at her doctor yesterday and was reported to be in A. fib instructed to come to emergency room. -couple week history of SOB -Cardiology consult -We will give patient 1 dose weight-based Lovenox given A. fib. Will discuss with cardiology about this anticoagulation -CT scan does not show any pneumonia pulmonary embolus -Echo ordered -PT OT -Cardiac diet -Home meds resumed as indicated Justifications for Admission Other Justification CHAPINCITO GALLOWAY MD Jun 23, 2021 11:13
[2021-06-23 18:00] VITALS: BP 128/59
--- NOTE | 2021-06-23 18:05 | NUR ---
ADMISSION UNCERTAIN WHEN PT ARRIVED IN ROOM. WALKED PAST ROOM AT 1800 ET OBSERVED PT BELONGINGS IN CHAIR. ENTERED ROOM AND FOUND PT IN BED. SHE IS ON O2, HAS CALL LIGHT IN REACH, ET IS GENERALLY IN BRIGHT SPIRITS. TELE MONITOR APPLIED AT THIS TIME, TECH TO FOLLOW ET TAKE VS.
[2021-06-23] MEDS ORDERED: ALBUTEROL SULFATE 8GM INHALER. INH PRN (20:00)
[2021-06-23] MEDS: METOPROLOL TART IMMED RELEASE 25 MG TABLET. PO SCH (21:35)
[2021-06-23] MEDS: MONTELUKAST SODIUM 10 MG TABLET. PO SCH (21:35)
[2021-06-23] MEDS: APIXABAN 5 MG TABLET. PO SCH (21:36)
[2021-06-23] MEDS: ATORVASTATIN CALCIUM 10 MG TABLET. PO SCH (21:36)
[2021-06-23 23:00] VITALS: BP 160/76
[2021-06-24] MEDS: ZOLPIDEM 5 MG TABLET. PO PRN ×2 (00:30→23:44)
[2021-06-24 03:00] VITALS: BP 147/67
[2021-06-24 07:23] VITALS: BP 155/75
[2021-06-24] MEDS: FUROSEMIDE 40 MG TABLET. PO SCH (08:05)
[2021-06-24] MEDS: APIXABAN 5 MG TABLET. PO SCH ×2 (08:05→20:29)
[2021-06-24] MEDS: ASPIRIN ENTERIC COATED 81 MG TABLET.DR. PO SCH (08:05)
[2021-06-24] MEDS: METOPROLOL TART IMMED RELEASE 25 MG TABLET. PO SCH ×2 (08:07→20:31)
[2021-06-24] MEDS: SPIRONOLACTONE 25 MG TABLET PO SCH (08:07)
[2021-06-24] MEDS: SENNOSIDES/DOCUSATE 8.6/50MG TABLET. PO SCH ×2 (08:07→20:29)
[2021-06-24] MEDS: PANTOPRAZOLE 40 MG TABLET.DR. PO SCH (08:08)
[2021-06-24] MEDS: glipiZIDE 5 MG TABLET PO SCH ×2 (08:08→17:20)
[2021-06-24 10:08] VITALS: BP 146/74
--- NOTE | 2021-06-24 11:20 | PDOC ---
ANITA DAVID APRN 06/24/21 1120: CARDIO Progress Notes Date and Time Date of Service 06/24/21 Time of Evaluation 1115 Subjective Subjective: No Chest Pain, No shortness of breath, No Palpitations Vitals Vitals Vital Signs Date Time Temp Pulse Resp B/P (MAP) Pulse Ox O2 Delivery O2 Flow Rate FiO2 06/24/21 10:08 97.5 52 18 146/74 (98) 97 Nasal Cannula 2.0 97.5 Weight Weight [ ] Input and Output Intake and Output Intake and Output 06/24/21 07:00 Intake Total 200 ml Output Total 100 ml Balance 100 ml Intake Oral 200 ml Output Urine Total 100 ml Laboratory Labs Laboratory Tests Test 06/23/21 20:37 06/24/21 07:27 06/24/21 09:00 Glucose (Fingerstick) 272 mg/dL (70-99) 130 mg/dL (70-99) SARS-CoV-2 Antigen (Rapid) Negative (NEGATIVE) Microbiology Micro Microbiology 06/22/21 Blood Culture - Preliminary, Resulted NO GROWTH AFTER 1 DAY Physical Exam HEENT: Neck Supple W Full Motion Chest: Symmetric LUNGS: Clear to Auscultation Heart: other (SB) Abdomen: Soft N/T Extremities: No Edema Neurology: alert, oriented, follow commands Assessment Assessment 1. New onset AFIB; converted back to SR. Now now sinus bradycardia with HR in the upper 40's. 2. Obesity, SIMRAN intolerant to CPAP 3. Hypertension; controlled 4. Hyperlipidemia; statin 5. Diabetes, II 6. H/o lung CA s/p chemo and radiation 7. Hypokalemia; replaced Recommendations Echo today Metoprolol for rate control; will decrease to 12.5mg BID given bradycardia Eliquis for stroke prophylaxis Outpatient event monitor to guide therapy arranged Outpatient ischemic evaluation scheduled Follow up in our office with Dr. Prarish as scheduled. Justicifation of Admission Dx: Justifications for Admission: Justification of Admission Dx: Yes Comments: AFIB REBECCA PARRISH MD 06/24/212043: CARDIO Progress Notes Assessment Assessment Patient seen and examined. Agree with CALENDER SUPERVISOR's assessment and plan. Atrial fibrillation, newly diagnosed presently back in SR Agree with metoprolol for rate control and eliquis for stroke prophylaxis Plan outpatient event monitor and ischemic evaluation ANITA DAVID APRN Jun 24, 2021 11:20 REBECCA PARRISH MD Jun 24, 2021 20:44
--- NOTE | 2021-06-24 11:56 | NUR ---
SS following for discharge planning. SS reviewed pt chart and discussed with pt RN. Pt is from home and is currently requiring oxygen at two liters nasal canula. COVID19 negative on rapid test. PCR pending at this time. Pt has home oxygen. Cardiology consulted. SS will continue to follow for discharge planning.
[2021-06-24 14:52] VITALS: BP 160/75
[2021-06-24 19:20] VITALS: BP 142/63
--- NOTE | 2021-06-24 20:25 | NUR ---
Assessment completed vss poc explained call light in reach. Pt c/.o pain will medicate pt and continue to monitor pt.
[2021-06-24] MEDS: ATORVASTATIN CALCIUM 10 MG TABLET. PO SCH (20:29)
[2021-06-24] MEDS: MONTELUKAST SODIUM 10 MG TABLET. PO SCH (20:29)
[2021-06-24] MEDS: oxyCODONE/APAP 5/325 1 TAB TABLET PO PRN (20:35)
[2021-06-24 22:30] VITALS: BP 143/66
--- NOTE | 2021-06-24 22:51 | PDOC ---
[employer] PROGRESS NOTE Date of Service DOS: DATE: 06/24/21 TIME: 22:49 Chief Complaint Chief Complaint Shortness of breath secondary to new onset atrial fibrillation history of lung cancer. History asthma diabetes hypertension -Patient was at her doctor yesterday and was reported to be in A. fib instructed to come to emergency room. -couple week history of SOB -Cardiology consult -We will give patient 1 dose weight-based Lovenox given A. fib. Will discuss with cardiology about this anticoagulation -CT scan does not show any pneumonia pulmonary embolus -Echo ordered -PT OT -Cardiac diet -Home meds resumed as indicated History of Present Illness History of Present Illness Patient is a 71 year old female with history of diabetes type 2, hypertension, asthma, COPD currently not a smoker, lung cancer treated with chemo and radiation 1 year ago who presented to the ED overnight complaining of shortness of breath for last 2-3 weeks.. Patient said she went to see her own doctor and was noted to be in A. fib. Was then instructed to come to the ED. Patient states symptoms are worse on exertion. Patient denies any chest pain. Patient denies any fever, denies any unusual coughing or congestion. Patient denies 06/24 Patient evaluate examined at bedside. Resting in bed no acute complaints. Cardiology following. If cleared by them can likely discharge today or tomorrow. Vitals/I&O Vitals/I&O: Vital Signs Date Time Temp Pulse Resp B/P (MAP) Pulse Ox O2 Delivery O2 Flow Rate FiO2 06/24/21 21:05 18 97 Nasal Cannula 2.5 06/24/21 20:31 57 142/63 06/24/21 19:20 98.9 98.9 I & O 06/23/21 06/23/21 06/24/21 15:00 23:00 07:00 Intake Total 100 ml 100 ml Output Total 100 ml Balance 100 ml 0 ml Physical Exam General: Alert, Oriented X3, Cooperative, No acute distress Heart: Regular rate (SR) Lungs: Clear Abdomen: Soft, Other (obese) Extremities: Other (trace bilateral LE edema ) Skin: No significant lesion Labs Labs: Laboratory Tests Test 06/24/21 07:27 06/24/21 09:00 06/24/21 12:18 06/24/21 16:31 Glucose (Fingerstick) 130 mg/dL (70-99) 143 mg/dL (70-99) 91 mg/dL (70-99) SARS-CoV-2 RNA (MARITZA) Negative (Negative) SARS-CoV-2 Antigen (Rapid) Negative (NEGATIVE) Test 06/24/21 20:41 Glucose (Fingerstick) 174 mg/dL (70-99) Assessment and Plan Assessmemt and Plan Problems Medical Problems: (1) Chest pain Status: Acute Comment Review of Relevant I have reviewed the following items mich (where applicable) has been applied. Medications: Current Medications Medications (Trade) Dose Ordered Sig/[place] Route PRN Reason Start Time Stop Time Status Last Admin Dose Admin Glipizide (Glucotrol) 5 mg BIDAC PO 06/24/21 07:30 06/24/21 17:20 Metoprolol Tartrate (Lopressor) 12.5 mg BID PO 06/24/21 21:00 06/24/21 20:31 Justifications for Admission Other Justification CHAPINCITO GALLOWAY MD Jun 24, 2021 22:51
[2021-06-25 03:00] VITALS: BP 152/71
[2021-06-25] MEDS: PANTOPRAZOLE 40 MG TABLET.DR. PO SCH (05:53)
[2021-06-25 07:00] VITALS: BP 128/83
[2021-06-25] MEDS: ASPIRIN ENTERIC COATED 81 MG TABLET.DR. PO SCH (08:16)
[2021-06-25] MEDS: SPIRONOLACTONE 25 MG TABLET PO SCH (08:17)
[2021-06-25] MEDS: glipiZIDE 5 MG TABLET PO SCH ×2 (08:18→18:15)
[2021-06-25] MEDS: APIXABAN 5 MG TABLET. PO SCH ×2 (08:19→23:58)
[2021-06-25] MEDS: oxyCODONE/APAP 5/325 1 TAB TABLET PO PRN ×3 (08:19→23:55)
[2021-06-25] MEDS: FUROSEMIDE 40 MG TABLET. PO SCH (08:21)
[2021-06-25] MEDS: SENNOSIDES/DOCUSATE 8.6/50MG TABLET. PO SCH ×2 (09:00→21:00)
[2021-06-25 11:00] VITALS: BP 162/76
[2021-06-25] MEDS: METOPROLOL TART IMMED RELEASE 25 MG TABLET. PO SCH ×2 (12:09→23:59)
[2021-06-25] MEDS ORDERED: METOPROLOL IV PUSH 5 MG/5 ML VIAL. IVP ONE (12:15)
--- NOTE | 2021-06-25 12:18 | PDOC ---
TOM HILLS RADIATION PROTECTION ENGINEER 06/25/21 1218: CARDIO Progress Notes Date and Time Date of Service 06/25/2021 Time of Evaluation 1200 Subjective Subjective: No Chest Pain, No shortness of breath, No Palpitations Vitals Vitals Vital Signs Date Time Temp Pulse Resp B/P (MAP) Pulse Ox O2 Delivery O2 Flow Rate FiO2 06/25/21 11:00 98.6 83 18 162/76 (104) 93 Nasal Cannula 2.0 98.6 Weight Weight [ ] Input and Output Intake and Output Intake and Output 06/25/21 07:00 Intake Total 2140 ml Output Total 2750 ml Balance -610 ml Intake Oral 2140 ml Output Urine Total 2750 ml Laboratory Labs Laboratory Tests Test 06/24/21 12:18 06/24/21 16:31 06/24/21 20:41 06/25/21 07:45 Glucose (Fingerstick) 143 mg/dL (70-99) 91 mg/dL (70-99) 174 mg/dL (70-99) 94 mg/dL (70-99) Test 06/25/21 11:42 Glucose (Fingerstick) 153 mg/dL (70-99) Microbiology Micro Microbiology 06/22/21 Blood Culture - Preliminary, Resulted NO GROWTH AFTER 2 DAYS Physical Exam HEENT: Neck Supple W Full Motion Chest: Symmetric LUNGS: Other (diminished bases) Heart: other (AFIB RVR) Abdomen: Soft N/T Extremities: No Edema Neurology: alert, oriented, follow commands Assessment Assessment 1. New onset AFIB; episodes of bradycardia was SR now back in AFIB RVR 2. Obesity, SIMRAN intolerant to CPAP 3. Hypertension; controlled 4. Hyperlipidemia; statin 5. Diabetes, II 6. H/o lung CA s/p chemo and radiation 7. Hypokalemia; replaced Recommendations TTE pending. Start on amiodarone protocol x1 IV lopressor. Continue PO lopressor Monitor for bradycardia Eliquis for stroke prophylaxis Outpatient event monitor to guide therapy Outpatient ischemic evaluation scheduled Follow up in our office with Dr. Jolly as scheduled. Justicifation of Admission Dx: Justifications for Admission: Justification of Admission Dx: Yes REBECCA JOLLY MD 06/25/21 1510: CARDIO Progress Notes Assessment Assessment Patient seen and examined. Agree with SPORTS BOOK WRITER's assessment and plan. Atrial fibrillation, newly diagnosed, converted to sinus rhythm after admission but presently back in atrial fibrillation Continue metoprolol for rate control and eliquis for stroke prophylaxis Start amiodarone for rhythm maintenance Plan outpatient event monitor and ischemic evaluation TOM HILLS APRN Jun 25, 2021 12:18 REBECCA JOLLY MD Jun 25, 2021 15:10
--- NOTE | 2021-06-25 12:21 | PDOC ---
[employer] PROGRESS NOTE Date of Service DOS: DATE: 06/25/21 TIME: 12:19 Chief Complaint Chief Complaint Shortness of breath secondary to new onset atrial fibrillation history of lung cancer. History asthma diabetes hypertension -Patient was at her doctor yesterday and was reported to be in A. fib instructed to come to emergency room. -couple week history of SOB -Cardiology consult -We will give patient 1 dose weight-based Lovenox given A. fib. Will discuss with cardiology about this anticoagulation -CT scan does not show any pneumonia pulmonary embolus -Echo ordered -PT OT -Cardiac diet -Home meds resumed as indicated History of Present Illness History of Present Illness Patient is a 71 year old female with history of diabetes type 2, hypertension, asthma, COPD currently not a smoker, lung cancer treated with chemo and radiation 1 year ago who presented to the ED overnight complaining of shortness of breath for last 2-3 weeks.. Patient said she went to see her own doctor and was noted to be in A. fib. Was then instructed to come to the ED. Patient states symptoms are worse on exertion. Patient denies any chest pain. Patient denies any fever, denies any unusual coughing or congestion. Patient denies 06/24 Patient evaluate examined at bedside. Resting in bed no acute complaints. Cardiology following. If cleared by them can likely discharge today or tomorrow. 06/25 Patient evaluated examined at bedside. She was resting in bed complaining of a little bit of chest tightness on her right side with radiation to her back. Says to me that she does feel kind of edematous. Remains on oxygen. 6-minute walk ordered for tomorrow morning. Hopeful for discharge tomorr or Monday. Vitals/I&O Vitals/I&O: Vital Signs Date Time Temp Pulse Resp B/P (MAP) Pulse Ox O2 Delivery O2 Flow Rate FiO2 06/25/21 12:09 83 162/76 06/25/21 11:00 98.6 18 93 Nasal Cannula 2.0 98.6 I & O 06/24/21 06/24/21 06/25/21 15:00 23:00 07:00 Intake Total 640 ml 1200 ml 300 ml Output Total 1300 ml 1450 ml Balance -660 ml -250 ml 300 ml Physical Exam General: Alert, Oriented X3, Cooperative, No acute distress Heart: Regular rate (SR) Lungs: Clear Abdomen: Soft, Other (obese) Extremities: Other (trace bilateral LE edema ) Skin: No significant lesion Labs Labs: Laboratory Tests Test 06/24/21 16:31 06/24/21 20:41 06/25/21 07:45 06/25/21 11:42 Glucose (Fingerstick) 91 mg/dL (70-99) 174 mg/dL (70-99) 94 mg/dL (70-99) 153 mg/dL (70-99) Assessment and Plan Assessmemt and Plan Problems Medical Problems: (1) Chest pain Status: Acute Comment Review of Relevant I have reviewed the following items mich (where applicable) has been applied. Medications: Current Medications Medications (Trade) Dose Ordered Sig/John [place] Route PRN Reason Start Time Stop Time Status Last Admin Dose Admin Metoprolol Tartrate (Lopressor) 12.5 mg BID PO 06/24/21 21:00 06/25/21 12:09 Justifications for Admission Other Justification CHAPINCITO GALLOWAY MD Jun 25, 2021 12:21
[2021-06-25] MEDS ORDERED: AMIODARONE 450 MG in IV DEXTROSE 5% 250 ML IV PRN (13:00)
[2021-06-25] MEDS ORDERED: AMIODARONE 150 MG in IV DEXTROSE 5% 100ML 100 ML IV ONE (13:00)
--- NOTE | 2021-06-25 13:02 | NUR ---
SS following up with discharge planning. SS reviewed pt chart and discussed with pt RN. Pt is currently requiring oxygen at two liters nasal canula. COVID19 negative. Cardiology following. Pt having increased heart rate at this time and started on Amiodarone drip. Six minute walk cancelled. Pt has home oxygen. SS will continue to follow for discharge planning.
[2021-06-25 15:00] VITALS: BP 105/52
--- NOTE | 2021-06-25 18:02 | CARD ---
MR#: [id number] Date of Study: 06/25/2021 Ordering Physician: TOM HILLS, Referring Physician: TOM HILLS Tech: Lorrie Fair [facility] APPROVED REPORT EXAM: Two-dimensional and M-mode echocardiogram with Doppler and color Doppler. Other Information Quality : Technically LimitedHR: 65bpm Rhythm : NSR INDICATION Dyspnea RISK FACTORS Hypertension Obesity Hyperlipidemia Diabetes LEFT VENTRICLE The left ventricle is normal size. There is moderate to severe concentric left ventricular hypertroph y. The left ventricular systolic function is normal and the ejection fraction is within normal range. LV ejection fraction of 60 to 65%. There is normal LV segmental wall motion. Transmitral Doppler f low pattern is Grade II-pseudonormal filling dynamics. RIGHT VENTRICLE The right ventricle is borderline dilated. The right ventricle is mildly hypertrophied. The right benji tricular systolic function is normal. ATRIA The left atrium size is normal. The right atrium size is normal. AORTIC VALVE The aortic valve is normal in structure and function. Doppler and Color Flow revealed mild aortic reg urgitation. There is no significant aortic valvular stenosis. MITRAL VALVE The mitral valve is normal in structure and function. There is no evidence of mitral valve prolapse. There is no mitral valve stenosis. Doppler and Color-flow revealed mild mitral regurgitation. TRICUSPID VALVE The tricuspid valve is normal in structure and function. Doppler and Color Flow revealed mild tricusp id regurgitation. Estimated PAP 55-60 mmHg. There is no tricuspid valve stenosis. PULMONIC VALVE The pulmonary valve is normal in structure and function. Doppler and Color Flow revealed no pulmonic valvular regurgitation. GREAT VESSELS The aortic root is normal in size. The ascending aorta is normal in size. The IVC is dilated and leon apses <50% with inspiration. PERICARDIAL EFFUSION There is no evidence of significant pericardial effusion. Critical Notification Critical Value: No <Conclusion> The left ventricle is normal size. The left ventricular systolic function is normal and the ejection fraction is within normal range. LV ejection fraction of 60 to 65%. There is moderate to severe concentric left ventricular hypertrophy. There is normal LV segmental wall motion. Doppler and Color Flow revealed mild aortic regurgitation. There is no significant aortic valvular stenosis. Doppler and Color-flow revealed mild mitral regurgitation. Doppler and Color Flow revealed mild tricuspid regurgitation. Estimated PAP 55-60 mmHg. Signed by : Asif Lopez MD Electronically Approved : 06/25/2021 18:01:58
[2021-06-25] MEDS: guaiFENesin/CODEINE 100mg/10mg 5 ML LIQUID PO PRN (18:15)
[2021-06-25 19:00] VITALS: BP 138/76
[2021-06-25 23:00] VITALS: BP 133/63
[2021-06-25] MEDS: MONTELUKAST SODIUM 10 MG TABLET. PO SCH (23:52)
[2021-06-25] MEDS: ZOLPIDEM 5 MG TABLET. PO PRN (23:53)
[2021-06-25] MEDS: ATORVASTATIN CALCIUM 10 MG TABLET. PO SCH (23:53)
[2021-06-26 03:00] VITALS: BP 160/77
[2021-06-26 05:25] LABS: BASO % 0 % (0-3); EOS # 0.1 x10^3/uL (0.0-0.7); EOS % 2 % (0-3); HEMATOCRIT 34.2 % (36.0-47.0); HEMOGLOBIN 10.6 g/dL (12.0-15.5); LYMPH # 1.1 x10^3/uL (1.0-4.8); LYMPH % 19 % (24-48); MEAN CORPUSCULAR HEMOGLOBIN 28 pg (25-35); MEAN CORPUSCULAR HGB CONC 31 g/dL (31-37); MEAN CORPUSCULAR VOLUME 89 fL (79-100); MONO # 0.7 x10^3/uL (0.0-1.1); MONO % 12 % (0-9); NEUT # 3.7 x10^3/uL (1.8-7.7); NEUT % 67 % (31-73); PLATELET COUNT 132 x10^3/uL (140-400); RED BLOOD COUNT 3.82 x10^6/uL (3.50-5.40); RED CELL DISTRIBUTION WIDTH 16.8 % (11.5-14.5); WHITE BLOOD COUNT 5.5 x10^3/uL (4.0-11.0)
[2021-06-26 06:13] VITALS: BP 164/77
[2021-06-26] MEDS: SENNOSIDES/DOCUSATE 8.6/50MG TABLET. PO SCH ×2 (09:00→21:00)
[2021-06-26] MEDS: SPIRONOLACTONE 25 MG TABLET PO SCH (09:03)
[2021-06-26] MEDS: ASPIRIN ENTERIC COATED 81 MG TABLET.DR. PO SCH (09:03)
[2021-06-26] MEDS: PANTOPRAZOLE 40 MG TABLET.DR. PO SCH (09:03)
[2021-06-26] MEDS: FUROSEMIDE 40 MG TABLET. PO SCH (09:04)
[2021-06-26] MEDS: glipiZIDE 5 MG TABLET PO SCH ×2 (09:04→17:31)
[2021-06-26] MEDS: METOPROLOL TART IMMED RELEASE 25 MG TABLET. PO SCH ×2 (09:05→22:44)
[2021-06-26] MEDS: APIXABAN 5 MG TABLET. PO SCH ×2 (09:06→22:42)
[2021-06-26 11:00] VITALS: BP 168/84
[2021-06-26 11:28] LABS: CALCIUM 8.2 mg/dL (8.5-10.1); GFR 66.1; POTASSIUM 3.5 mmol/L (3.5-5.1)
[2021-06-26] MEDS: oxyCODONE/APAP 5/325 1 TAB TABLET PO PRN ×2 (14:05→22:45)
[2021-06-26 15:00] VITALS: BP 152/73
--- NOTE | 2021-06-26 17:38 | PDOC ---
[employer] PROGRESS NOTE Date of Service DOS: DATE: 06/26/21 TIME: 17:37 Chief Complaint Chief Complaint Shortness of breath secondary to new onset atrial fibrillation history of lung cancer. History asthma diabetes hypertension -Patient was at her doctor yesterday and was reported to be in A. fib instructed to come to emergency room. -couple week history of SOB -Cardiology consult -We will give patient 1 dose weight-based Lovenox given A. fib. Will discuss with cardiology about this anticoagulation -CT scan does not show any pneumonia pulmonary embolus -Echo ordered -PT OT -Cardiac diet -Home meds resumed as indicated History of Present Illness History of Present Illness Patient is a 71 year old female with history of diabetes type 2, hypertension, asthma, COPD currently not a smoker, lung cancer treated with chemo and radiation 1 year ago who presented to the ED overnight complaining of shortness of breath for last 2-3 weeks.. Patient said she went to see her own doctor and was noted to be in A. fib. Was then instructed to come to the ED. Patient states symptoms are worse on exertion. Patient denies any chest pain. Patient denies any fever, denies any unusual coughing or congestion. Patient denies 06/24 Patient evaluate examined at bedside. Resting in bed no acute complaints. Cardiology following. If cleared by them can likely discharge today or tomorrow. 06/25 Patient evaluated examined at bedside. She was resting in bed complaining of a little bit of chest tightness on her right side with radiation to her back. Says to me that she does feel kind of edematous. Remains on oxygen. 6-minute walk ordered for tomorrow morning. Hopeful for discharge tomorrow or Monday. 06/26 Patient evaluated examined at bedside. New onset A. fib yesterday requiring amnio drip per cardiology. Will defer control of this to them. Otherwise continue current treatment plan. Vitals/I&O Vitals/I&O: Vital Signs Date Time Temp Pulse Resp B/P (MAP) Pulse Ox O2 Delivery O2 Flow Rate FiO2 06/26/21 15:00 98.2 49 18 152/73 (99) 96 Nasal Cannula 2.0 98.2 I & O 06/25/21 06/25/21 06/26/21 15:00 23:00 07:00 Intake Total 360 ml 283 ml 200 ml Output Total 650 ml 100 ml 500 ml Balance -290 ml 183 ml -300 ml Physical Exam General: Alert, Oriented X3, Cooperative, No acute distress Heart: Regular rate (SR) Lungs: Clear Abdomen: Soft, Other (obese) Extremities: Other (trace bilateral LE edema ) Skin: No significant lesion Labs Labs: Laboratory Tests Test 06/25/21 20:00 06/26/21 05:00 06/26/21 06:50 06/26/21 11:36 Glucose (Fingerstick) 182 mg/dL (70-99) 104 mg/dL (70-99) 143 mg/dL (70-99) White Blood Count 5.5 x10^3/uL (4.0-11.0) Red Blood Count 3.82 x10^6/uL (3.50-5.40) Hemoglobin 10.6 g/dL (12.0-15.5) Hematocrit 34.2 % (36.0-47.0) Mean Corpuscular Volume 89 fL (79-100) Mean Corpuscular Hemoglobin 28 pg (25-35) Mean Corpuscular Hemoglobin Concent 31 g/dL (31-37) Red Cell Distribution Width 16.8 % (11.5-14.5) Platelet Count 132 x10^3/uL (140-400) Neutrophils (%) (Auto) 67 % (31-73) Lymphocytes (%) (Auto) 19 % (24-48) Monocytes (%) (Auto) 12 % (0-9) Eosinophils (%) (Auto) 2 % (0-3) Basophils (%) (Auto) 0 % (0-3) Neutrophils # (Auto) 3.7 x10^3/uL (1.8-7.7) Lymphocytes # (Auto) 1.1 x10^3/uL (1.0-4.8) Monocytes # (Auto) 0.7 x10^3/uL (0.0-1.1) Eosinophils # (Auto) 0.1 x10^3/uL (0.0-0.7) Basophils # (Auto) 0.0 x10^3/uL (0.0-0.2) Sodium Level 145 mmol/L (136-145) Potassium Level 3.5 mmol/L (3.5-5.1) Chloride Level 104 mmol/L (98-107) Carbon Dioxide Level 36 mmol/L (21-32) Anion Gap 5 (6-14) Blood Urea Nitrogen 16 mg/dL (7-20) Creatinine 1.0 mg/dL (0.6-1.0) Estimated GFR (Cockcroft-Gault) 66.1 Glucose Level 111 mg/dL (70-99) Calcium Level 8.2 mg/dL (8.5-10.1) Test 06/26/21 16:25 Glucose (Fingerstick) 133 mg/dL (70-99) Assessment and Plan Assessmemt and Plan Problems Medical Problems: (1) Chest pain Status: Acute Comment Review of Relevant I have reviewed the following items mich (where applicable) has been applied. Justifications for Admission Other Justification CHAPINCITO GALLOWAY MD Jun 26, 2021 17:38
--- NOTE | 2021-06-26 18:43 | PDOC ---
PROGRESS NOTES Date of Service DATE: 06/26/21 TIME: 18:39 Subjective Subjective Patient seen and examined Objective Objective Vital Signs Date Time Temp Pulse Resp B/P (MAP) Pulse Ox O2 Delivery O2 Flow Rate FiO2 06/26/21 15:00 98.2 49 18 152/73 (99) 96 Nasal Cannula 2.0 98.2 Intake and Output 06/26/21 07:00 Intake Total 843 ml Output Total 1250 ml Balance -407 ml Intake Oral 540 ml IV Total 303 ml Output Urine Total 1250 ml Physical Exam Abdomen: Normal bowel sounds Heart: Regular rate General: No acute distress Lungs: Other Diagnosis DIAGNOSIS 1. New onset AFIB; episodes of bradycardia was SR now back in AFIB RVR 2. Obesity, SIMRAN intolerant to CPAP 3. Hypertension; controlled 4. Hyperlipidemia; statin 5. Diabetes, II 6. H/o lung CA s/p chemo and radiation 7. Hypokalemia; replaced Recommendations TTE pending. Start on amiodarone protocol x1 IV lopressor. Continue PO lopressor Monitor for bradycardia Eliquis for stroke prophylaxis Outpatient event monitor to guide therapy Outpatient ischemic evaluation scheduled Follow up in our office with Dr. Parrish as scheduled. Justicifation of Admission Dx: Justicifation of Admission Dx: Justifications for Admission: Justification of Admission Dx: Yes REBECCA PARRISH MD 06/25/21 1510: CARDIO Progress Notes CARDIO Progress Notes Assessment Assessment Patient seen and examined. Agree with IC DESIGNER CUSTOM's assessment and plan. Atrial fibrillation, newly diagnosed, converted to sinus rhythm after admission but presently back in atrial fibrillation Continue metoprolol for rate control and eliquis for stroke prophylaxis Start amiodarone for rhythm maintenance Plan outpatient event monitor and ischemic evaluation Assessment Assessment Problems Medical Problems: (1) Chest pain Status: Acute 1. New onset AFIB; several episodes of atrial fibrillation. Now in a sinus rhythm with a rate in the 50s. Amiodarone discontinued due to significant bradycardia. We will continue on low-dose beta-blockers and the patient is also on 2.5 mg of Norvasc. Eliquis for stroke prophylaxis. Outpatient event monitor and ischemia evaluation. 2. Obesity, SIMRAN intolerant to CPAP 3. Hypertension; controlled 4. Hyperlipidemia; statin 5. Diabetes, II 6. H/o lung CA s/p chemo and radiation 7. Hypokalemia; replaced. Justicifation of Admission Dx: CARDIO Progress Notes Comment Review of Relevant I have reviewed the following items mich (where applicable) has been applied. Labs Laboratory Tests Test 06/24/21 20:41 06/25/21 07:45 06/25/21 11:42 06/25/21 17:16 Glucose (Fingerstick) 174 mg/dL (70-99) 94 mg/dL (70-99) 153 mg/dL (70-99) 129 mg/dL (70-99) Test 06/25/21 20:00 06/26/21 05:00 06/26/21 06:50 06/26/21 11:36 Glucose (Fingerstick) 182 mg/dL (70-99) 104 mg/dL (70-99) 143 mg/dL (70-99) White Blood Count 5.5 x10^3/uL (4.0-11.0) Red Blood Count 3.82 x10^6/uL (3.50-5.40) Hemoglobin 10.6 g/dL (12.0-15.5) Hematocrit 34.2 % (36.0-47.0) Mean Corpuscular Volume 89 fL (79-100) Mean Corpuscular Hemoglobin 28 pg (25-35) Mean Corpuscular Hemoglobin Concent 31 g/dL (31-37) Red Cell Distribution Width 16.8 % (11.5-14.5) Platelet Count 132 x10^3/uL (140-400) Neutrophils (%) (Auto) 67 % (31-73) Lymphocytes (%) (Auto) 19 % (24-48) Monocytes (%) (Auto) 12 % (0-9) Eosinophils (%) (Auto) 2 % (0-3) Basophils (%) (Auto) 0 % (0-3) Neutrophils # (Auto) 3.7 x10^3/uL (1.8-7.7) Lymphocytes # (Auto) 1.1 x10^3/uL (1.0-4.8) Monocytes # (Auto) 0.7 x10^3/uL (0.0-1.1) Eosinophils # (Auto) 0.1 x10^3/uL (0.0-0.7) Basophils # (Auto) 0.0 x10^3/uL (0.0-0.2) Sodium Level 145 mmol/L (136-145) Potassium Level 3.5 mmol/L (3.5-5.1) Chloride Level 104 mmol/L (98-107) Carbon Dioxide Level 36 mmol/L (21-32) Anion Gap 5 (6-14) Blood Urea Nitrogen 16 mg/dL (7-20) Creatinine 1.0 mg/dL (0.6-1.0) Estimated GFR (Cockcroft-Gault) 66.1 Glucose Level 111 mg/dL (70-99) Calcium Level 8.2 mg/dL (8.5-10.1) Test 06/26/21 16:25 Glucose (Fingerstick) 133 mg/dL (70-99) Laboratory Tests Test 06/25/21 20:00 06/26/21 05:00 06/26/21 06:50 06/26/21 11:36 Glucose (Fingerstick) 182 mg/dL (70-99) 104 mg/dL (70-99) 143 mg/dL (70-99) White Blood Count 5.5 x10^3/uL (4.0-11.0) Red Blood Count 3.82 x10^6/uL (3.50-5.40) Hemoglobin 10.6 g/dL (12.0-15.5) Hematocrit 34.2 % (36.0-47.0) Mean Corpuscular Volume 89 fL (79-100) Mean Corpuscular Hemoglobin 28 pg (25-35) Mean Corpuscular Hemoglobin Concent 31 g/dL (31-37) Red Cell Distribution Width 16.8 % (11.5-14.5) Platelet Count 132 x10^3/uL (140-400) Neutrophils (%) (Auto) 67 % (31-73) Lymphocytes (%) (Auto) 19 % (24-48) Monocytes (%) (Auto) 12 % (0-9) Eosinophils (%) (Auto) 2 % (0-3) Basophils (%) (Auto) 0 % (0-3) Neutrophils # (Auto) 3.7 x10^3/uL (1.8-7.7) Lymphocytes # (Auto) 1.1 x10^3/uL (1.0-4.8) Monocytes # (Auto) 0.7 x10^3/uL (0.0-1.1) Eosinophils # (Auto) 0.1 x10^3/uL (0.0-0.7) Basophils # (Auto) 0.0 x10^3/uL (0.0-0.2) Sodium Level 145 mmol/L (136-145) Potassium Level 3.5 mmol/L (3.5-5.1) Chloride Level 104 mmol/L (98-107) Carbon Dioxide Level 36 mmol/L (21-32) Anion Gap 5 (6-14) Blood Urea Nitrogen 16 mg/dL (7-20) Creatinine 1.0 mg/dL (0.6-1.0) Estimated GFR (Cockcroft-Gault) 66.1 Glucose Level 111 mg/dL (70-99) Calcium Level 8.2 mg/dL (8.5-10.1) Test 06/26/21 16:25 Glucose (Fingerstick) 133 mg/dL (70-99) Microbiology 06/22/21 Blood Culture - Preliminary, Resulted NO GROWTH AFTER 3 DAYS Medications Current Medications Ondansetron HCl (Zofran) 4 mg PRN Q8HRS PRN IVP NAUSEA/VOMITING; Start 06/22/21 at 22:15; Stop 06/23/21 at 07:47; Status DC Morphine Sulfate (Morphine Sulfate) 4 mg PRN Q2HR PRN IVP PAIN; Start 06/22/21 at 22:15; Stop 06/23/21 at 22:14; Status DC Acetaminophen (Tylenol) 650 mg PRN Q4HRS PRN PO FEVER > 100.3'F Last administered on 06/23/21at 01:29; Start 06/22/21 at 22:15; Stop 06/23/21 at 0 7:46; Status DC Albuterol/ Ipratropium (Duoneb) 3 ml RTQID NEB Last administered on 06/23/21at 16:50; Start 06/23/21 at 08:00; Stop 06/23/21 at 19:56; Status DC Iohexol (Omnipaque 350 Mg/ml) 100 ml 1X ONCE IV Last administered on 06/22/21at 22:30; Start 06/22/21 at 22:30; Stop 06/22/21 at 22:32; Status DC Info (CONTRAST GIVEN -- Rx MONITORING) 1 each PRN DAILY PRN MC SEE COMMENTS; Start 06/22/21 at 22:30; Stop 06/24/21 at 22:29; Status DC Potassium Chloride (Klor-Con) 40 meq 1X ONCE PO Last administered on 06/23/21at 08:19; Start 06/23/21 at 07:45; Stop 06/23/21 at 07:46; Status DC Aspirin (Ecotrin) 81 mg DAILY PO Last administered on 06/26/21at 09:03; Start 06/23/21 at 09:00 Atorvastatin Calcium (Lipitor) 10 mg QHS PO Last administered on 06/25/21at 23:53; Start 06/23/21 at 21:00 Furosemide (Lasix) 40 mg DAILY PO Last administered on 06/26/21at 09:04; Start 06/23/21 at 09:00 Glipizide (Glucotrol) 5 mg BID PO ; Start 06/23/21 at 09:00; Stop 06/23/21 at 20:03; Status DC Montelukast Sodium (Singulair) 10 mg HS PO Last administered on 06/25/21at 23:52; Start 06/23/21 at 21:00 Spironolactone (Aldactone) 12.5 mg DAILY PO Last administered on 06/26/21at 09:03; Start 06/23/21 at 09:00 Zolpidem Tartrate (Ambien) 5 mg PRN QHS PRN PO INSOMNIA Last administered on 06/25/21at 23:53; Start 06/23/21 at 07:45 Albuterol Sulfate (Ventolin Neb Soln) 2.5 mg PRN Q6HRS PRN NEB SHORTNESS OF BR EATH; Start 06/23/21 at 08:00; Stop 06/23/21 at 19:56; Status DC Amlodipine Besylate (Norvasc) 2.5 mg DAILY PO Last administered on 06/26/21at 09:04; Start 06/23/21 at 09:00 Pantoprazole Sodium (Protonix) 40 mg DAILYAC PO Last administered on 06/26/21at 09:03; Start 06/23/21 at 08:00 Cyclobenzaprine HCl (Flexeril) 10 mg PRN Q6HRS PRN PO MUSCLE SPASMS; Start 06/23/21 at 08:00 Ondansetron HCl (Zofran) 4 mg PRN Q6HRS PRN IVP NAUSEA/VOMITING; Start 06/23/21 at 07:45 Calcium Carbonate/ Glycine (Tums) 500 mg PRN Q3HRS PRN PO UPSET STOMACH; Start 06/23/21 at 07:45 Info (Non-Icu Electrolyte Protocol) 1 ea PRN DAILY PRN MC SEE COMMENTS; Start 06/23/21 at 07:45 Oxycodone/ Acetaminophen (Percocet 5/325) 1 tab PRN Q4HRS PRN PO MILD PAIN, 1ST CHOICE Last administered on 06/26/21at 14:05; Start 06/23/21 at 07:45 Oxycodone/ Acetaminophen (Percocet 5/325) 2 tab PRN Q4HRS PRN PO MODERATE PAIN, SEVERE PAIN Last administered on 06/23/21at 21:54; Start 06/23/21 at 07:45 Acetaminophen (Tylenol) 650 mg PRN Q6HRS PRN PO Headaches, Temp > 101.5F; Start 06/23/21 at 07:45 Senna/Docusate Sodium (Senna Plus) 1 tab BID PO Last administered on 06/24/21at 20:29; Start 06/23/21 at 09:00 Enoxaparin Sodium (Lovenox 100mg Syringe) 100 mg 1X ONCE SQ Last administered on 06/23/21at 08:19; Start 06/23/21 at 08:00; Stop 06/23/21 at 08:01; Status DC Metoprolol Tartrate (Lopressor) 25 mg BID PO Last administered on 06/24/21at 08:07; Start 06/23/21 at 21:00; Stop 06/24/21 at 13:15; Status DC Apixaban (Eliquis) 5 mg BID PO Last administered on 06/26/21at 09:06; Start 06/23/21 at 21:00 Albuterol Sulfate (Ventolin Hfa) 1 puff PRN Q6HRS PRN INH SHORTNESS OF BREATH; Start 06/23/21 at 20:00 Glipizide (Glucotrol) 5 mg BIDAC PO Last administered on 06/26/21at 17:31; Start 06/24/21 at 07:30 Metoprolol Tartrate (Lopressor) 12.5 mg BID PO Last administered on 06/26/21at 09:05; Start 06/24/21 at 21:00 Metoprolol Tartrate (Lopressor Vial) 5 mg 1X ONCE IVP Last administered on 06/25/21at 12:32; Start 06/25/21 at 12:15; Stop 06/25/21 at 12:16; Status DC Amiodarone HCl 150 mg/Dextrose 103 ml @ 600 mls/hr 1X ONCE IV Last administered on 06/25/21at 14:42; Start 06/25/21 at 13:00; Stop 06/25/21 at 13:10; Status DC Amiodarone HCl 450 mg/Dextrose 259 ml @ 33 mls/hr CONT PRN IV SEE I/O RECORD Last administered on 06/25/21at 20:10; Start 06/25/21 at 13:00; Stop 06/26/21 at 12:59; Status DC Guaifenesin/ Codeine Phosphate (Robitussin Ac) 5 ml PRN Q6HRS PRN PO COUGH Last administered on 06/25/21at 18:15; Start 06/25/21 at 15:30 Active Scripts Active Orphenadrine Citrate 100 Mg Tablet.er 1 Tab PO BID PRN [place] 5-325 Tablet (Acetaminophen/Hydrocodone Bitart) 1 Each Tablet 1-2 Each PO PRN Q6HRS PRN as needed for pain Reported Cold & Flu Relief Multi-Sym Lq (Diphenhydra/Phenyleph/Acetamin) 180 Ml Liquid 180 Ml PO PRN PRN Montelukast Sodium Tablet (Montelukast Sodium) 10 Mg Tablet 10 Mg PO HS Calcium 600 + Vit D3 Caplet (Calcium Carbonate/Vitamin D3) 1 Each Tablet 1 Tab PO DAILY 30 Days Fish Oil 1,200 mg Softgel ([place]-3/Dha/Epa/Fish Oil) 1 Each Capsule. 1 Cap PO DAILY 30 Days Tramadol Hcl 50 Mg Tablet 50 Mg PO Q6HRS PRN Ambien (Zolpidem Tartrate) 5 Mg Tablet 5 Mg PO PRN QHS PRN Atorvastatin Calcium 10 Mg Tablet 1 Tab PO DAILY Aspirin Ec (Aspirin) 81 Mg Tablet.dr [place] Tab PO DAILY Vitamin B-12 (Cyanocobalamin (Vitamin B-12)) 1,000 Mcg Tablet 1 Tab PO DAILY Omeprazole 40 Mg Capsule.dr 1 Cap PO DAILY Furosemide 40 Mg Tablet 1 Tab PO DAILY Ventolin Hfa Inhaler (Albuterol Sulfate) 18 Gm Hfa.aer.ad 2 Puff INH QIDPRN Percocet 7.5-325 Mg Tablet (Oxycodone/Acetaminophen) 1 Each Tablet 1 Tab PO PRN Q6HRS PRN Amlodipine Besylate 2.5 Mg Tablet 2.5 Mg PO DAILY Zolpidem Tartrate 5 Mg Tablet 5 Mg PO PRN QHS PRN Tessalon Perle (Benzonatate) 100 Mg Capsule 100 Mg PO TID PRN Glipizide 5 Mg Tablet 1 Tab PO BID Potassium Chloride (Potassium Chloride) 10 Meq Tab.sr.24h 10 Meq PO DAILY Spironolactone 25 Mg Tablet 0.5 Tab PO DAILY Vitals/I & O Vital Sign - Last 24 Hours 06/25/21 06/25/21 06/25/21 06/25/21 18:45 19:00 20:00 23:00 Temp 98.9 98.0 98.9 98.0 Pulse 52 54 Resp 18 18 B/P (MAP) 138/76 (96) 133/63 (86) Pulse Ox 96 97 100 O2 Delivery Nasal Cannula Nasal Cannula Nasal Cannula Nasal Cannula O2 Flow Rate 1.0 2.0 2.0 2.0 06/25/21 06/25/21 06/26/21 06/26/21 23:55 23:59 00:30 03:00 Temp 97.7 97.7 Pulse 60 47 Resp 20 20 16 B/P (MAP) 133/63 160/77 (104) Pulse Ox 100 92 98 O2 Delivery Nasal Cannula Nasal Cannula Nasal Cannula O2 Flow Rate 1.0 2.0 2.0 06/26/21 06/26/21 06/26/21 06/26/21 06:13 08:00 09:04 09:05 Temp 97.8 97.8 Pulse 49 54 58 Resp 19 B/P (MAP) 164/77 (106) 164/77 164/77 Pulse Ox 94 O2 Delivery Nasal Cannula Nasal Cannula O2 Flow Rate 2.0 1.0 06/26/21 06/26/21 06/26/21 06/26/21 11:00 14:05 14:35 15:00 Temp 98.7 98.2 98.7 98.2 Pulse 47 49 Resp 18 18 B/P (MAP) 168/84 (112) 152/73 (99) Pulse Ox 97 97 97 96 O2 Delivery Nasal Cannula Nasal Cannula Nasal Cannula Nasal Cannula O2 Flow Rate 2.0 2.0 2.0 2.0 Intake and Output 06/25/21 06/25/21 06/26/21 15:00 23:00 07:00 Intake Total 360 ml 283 ml 200 ml Output Total 650 ml 100 ml 500 ml Balance -290 ml 183 ml -300 ml Justifications for Admission Other Justification NYASIA COMER MD Jun 26, 2021 18:43
[2021-06-26 19:32] VITALS: BP 153/70
[2021-06-26] MEDS: MONTELUKAST SODIUM 10 MG TABLET. PO SCH (22:42)
[2021-06-26] MEDS: ATORVASTATIN CALCIUM 10 MG TABLET. PO SCH (22:42)
[2021-06-26] MEDS: guaiFENesin/CODEINE 100mg/10mg 5 ML LIQUID PO PRN (22:42)
[2021-06-26] MEDS: ZOLPIDEM 5 MG TABLET. PO PRN (22:44)
[2021-06-26 22:46] VITALS: BP 154/87
[2021-06-27 02:55] VITALS: BP 153/82
[2021-06-27] MEDS: BENZOCAINE/MENTHOL LOZENGE. PO PRN ×2 (05:05→22:04)
[2021-06-27 07:00] VITALS: BP 165/77
[2021-06-27] MEDS: SENNOSIDES/DOCUSATE 8.6/50MG TABLET. PO SCH ×2 (09:00→21:00)
[2021-06-27] MEDS: glipiZIDE 5 MG TABLET PO SCH ×2 (10:15→18:38)
[2021-06-27] MEDS: APIXABAN 5 MG TABLET. PO SCH ×2 (10:15→22:04)
[2021-06-27] MEDS: PANTOPRAZOLE 40 MG TABLET.DR. PO SCH (10:15)
[2021-06-27] MEDS: METOPROLOL TART IMMED RELEASE 25 MG TABLET. PO SCH ×2 (10:16→22:06)
[2021-06-27] MEDS: ASPIRIN ENTERIC COATED 81 MG TABLET.DR. PO SCH (10:16)
[2021-06-27] MEDS: SPIRONOLACTONE 25 MG TABLET PO SCH (10:17)
[2021-06-27] MEDS: FUROSEMIDE 40 MG TABLET. PO SCH (10:17)
[2021-06-27 11:00] VITALS: BP 140/67
--- NOTE | 2021-06-27 13:19 | PDOC ---
[employer] PROGRESS NOTE Date of Service DOS: DATE: 06/27/21 TIME: 13:17 Chief Complaint Chief Complaint Shortness of breath secondary to new onset atrial fibrillation history of lung cancer. History asthma diabetes hypertension -Patient was at her doctor yesterday and was reported to be in A. fib instructed to come to emergency room. -couple week history of SOB -Cardiology consult -We will give patient 1 dose weight-based Lovenox given A. fib. Will discuss with cardiology about this anticoagulation -CT scan does not show any pneumonia pulmonary embolus -Echo ordered -PT OT -Cardiac diet -Home meds resumed as indicated History of Present Illness History of Present Illness Patient is a 71 year old female with history of diabetes type 2, hypertension, asthma, COPD currently not a smoker, lung cancer treated with chemo and radiation 1 year ago who presented to the ED overnight complaining of shortness of breath for last 2-3 weeks.. Patient said she went to see her own doctor and was noted to be in A. fib. Was then instructed to come to the ED. Patient states symptoms are worse on exertion. Patient denies any chest pain. Patient denies any fever, denies any unusual coughing or congestion. Patient denies 06/24 Patient evaluate examined at bedside. Resting in bed no acute complaints. Cardiology following. If cleared by them can likely discharge today or tomorrow. 06/25 Patient evaluated examined at bedside. She was resting in bed complaining of a little bit of chest tightness on her right side with radiation to her back. Says to me that she does feel kind of edematous. Remains on oxygen. 6-minute walk ordered for tomorrow morning. Hopeful for discharge tomorrow or Monday. 06/26 Patient evaluated examined at bedside. New onset A. fib yesterday requiring amnio drip per cardiology. Will defer control of this to them. Otherwise continue current treatment plan. 06/27 Patient evaluate examined at bedside. Amnio drip had to be stopped due to bradycardia. On low-dose Lopressor now. When I saw her she was resting in bed. Continuing current plan. We will try 6-minute walk tomorrow. Vitals/I&O Vitals/I&O: Vital Signs Date Time Temp Pulse Resp B/P (MAP) Pulse Ox O2 Delivery O2 Flow Rate FiO2 06/27/21 10:18 68 165/77 06/27/21 07:00 99.0 20 99 Nasal Cannula 2.0 99.0 I & O 06/26/21 06/26/21 06/27/21 14:59 22:59 06:59 Intake Total 360 ml 280 ml 0 ml Output Total 250 ml 450 ml Balance 360 ml 30 ml -450 ml Physical Exam General: No acute distress Heart: Regular rate Lungs: Clear Abdomen: Normal bowel sounds Extremities: Other (trace bilateral LE edema ) Skin: No significant lesion Labs Labs: Laboratory Tests Test 06/26/21 16:25 06/26/21 21:08 06/27/21 06:58 06/27/21 11:46 Glucose (Fingerstick) 133 mg/dL (70-99) 122 mg/dL (70-99) 131 mg/dL (70-99) 174 mg/dL (70-99) Assessment and Plan Assessmemt and Plan Problems Medical Problems: (1) Chest pain Status: Acute Comment Review of Relevant I have reviewed the following items mich (where applicable) has been applied. Medications: Current Medications Medications (Trade) Dose Ordered Sig/John Paul Route PRN Reason Start Time Stop Time Status Last Admin Dose Admin Throat Lozenges (Cepacol Sore Throat Lozenge) 1 isaura PRN Q2HRS PRN PO SORE THROAT 06/27/21 04:45 06/27/21 05:05 Justifications for Admission Other Justification CHAPINCITO GALLOWAY MD Jun 27, 2021 13:19
[2021-06-27 15:00] VITALS: BP 156/65
--- NOTE | 2021-06-27 16:41 | PDOC ---
PROGRESS NOTES Date of Service DATE: 06/27/21 TIME: 16:38 Subjective Subjective Patient seen and examined Objective Objective Vital Signs Date Time Temp Pulse Resp B/P (MAP) Pulse Ox O2 Delivery O2 Flow Rate FiO2 06/27/21 11:00 99.8 88 22 140/67 (91) 92 Nasal Cannula 2.0 99.8 Intake and Output 06/27/21 07:00 Intake Total 640 ml Output Total 700 ml Balance -60 ml Intake Oral 640 ml Output Urine Total 700 ml Physical Exam Abdomen: Normal bowel sounds Heart: Other (Irregularly irregular) General: mild distress Lungs: Other (Minimally decreased breath sounds) Assessment Assessment Problems Medical Problems: (1) Chest pain Status: Acute 1. New onset AFIB; several episodes of atrial fibrillation. Had been in sinus rhythm and amnio was discontinued due to significant bradycardia. The patient is now in atrial fibrillation with a rate of approximately 76. We will continue present medications including beta-blockers and low-dose Norvasc. Eliquis for stroke prevention. Outpatient event monitor and ischemia evaluation. 2. Obesity, SIMRAN intolerant to CPAP 3. Hypertension; controlled 4. Hyperlipidemia; statin 5. Diabetes, II 6. H/o lung CA s/p chemo and radiation 7. Hypokalemia; replaced. Comment Review of Relevant I have reviewed the following items mich (where applicable) has been applied. Labs Laboratory Tests Test 06/25/21 17:16 06/25/21 20:00 06/26/21 05:00 06/26/21 06:50 Glucose (Fingerstick) 129 mg/dL (70-99) 182 mg/dL (70-99) 104 mg/dL (70-99) White Blood Count 5.5 x10^3/uL (4.0-11.0) Red Blood Count 3.82 x10^6/uL (3.50-5.40) Hemoglobin 10.6 g/dL (12.0-15.5) Hematocrit 34.2 % (36.0-47.0) Mean Corpuscular Volume 89 fL (79-100) Mean Corpuscular Hemoglobin 28 pg (25-35) Mean Corpuscular Hemoglobin Concent 31 g/dL (31-37) Red Cell Distribution Width 16.8 % (11.5-14.5) Platelet Count 132 x10^3/uL (140-400) Neutrophils (%) (Auto) 67 % (31-73) Lymphocytes (%) (Auto) 19 % (24-48) Monocytes (%) (Auto) 12 % (0-9) Eosinophils (%) (Auto) 2 % (0-3) Basophils (%) (Auto) 0 % (0-3) Neutrophils # (Auto) 3.7 x10^3/uL (1.8-7.7) Lymphocytes # (Auto) 1.1 x10^3/uL (1.0-4.8) Monocytes # (Auto) 0.7 x10^3/uL (0.0-1.1) Eosinophils # (Auto) 0.1 x10^3/uL (0.0-0.7) Basophils # (Auto) 0.0 x10^3/uL (0.0-0.2) Sodium Level 145 mmol/L (136-145) Potassium Level 3.5 mmol/L (3.5-5.1) Chloride Level 104 mmol/L (98-107) Carbon Dioxide Level 36 mmol/L (21-32) Anion Gap 5 (6-14) Blood Urea Nitrogen 16 mg/dL (7-20) Creatinine 1.0 mg/dL (0.6-1.0) Estimated GFR (Cockcroft-Gault) 66.1 Glucose Level 111 mg/dL (70-99) Calcium Level 8.2 mg/dL (8.5-10.1) Test 06/26/21 11:36 06/26/21 16:25 06/26/21 21:08 06/27/21 06:58 Glucose (Fingerstick) 143 mg/dL (70-99) 133 mg/dL (70-99) 122 mg/dL (70-99) 131 mg/dL (70-99) Test 06/27/21 11:46 Glucose (Fingerstick) 174 mg/dL (70-99) Laboratory Tests Test 06/26/21 21:08 06/27/21 06:58 06/27/21 11:46 Glucose (Fingerstick) 122 mg/dL (70-99) 131 mg/dL (70-99) 174 mg/dL (70-99) Microbiology 06/22/21 Blood Culture - Preliminary, Resulted NO GROWTH AFTER 4 DAYS Medications Current Medications Ondansetron HCl (Zofran) 4 mg PRN Q8HRS PRN IVP NAUSEA/VOMITING; Start 06/22/21 at 22:15; Stop 06/23/21 at 07:47; Status DC Morphine Sulfate (Morphine Sulfate) 4 mg PRN Q2HR PRN IVP PAIN; Start 06/22/21 at 22:15; Stop 06/23/21 at 22:14; Status DC Acetaminophen (Tylenol) 650 mg PRN Q4HRS PRN PO FEVER > 100.3'F Last administered on 06/23/21at 01:29; Start 06/22/21 at 22:15; Stop 06/23/21 at 07:46; Status DC Albuterol/ Ipratropium (Duoneb) 3 ml RTQID NEB Last administered on 06/23/21at 16:50; Start 06/23/21 at 08:00; Stop 06/23/21 at 19:56; Status DC Iohexol (Omnipaque 350 Mg/ml) 100 ml 1X ONCE IV Last administered on 06/22/21at 22:30; Start 06/22/21 at 22:30; Stop 06/22/21 at 22:32; Status DC Info (CONTRAST GIVEN -- Rx MONITORING) 1 each PRN DAILY PRN MC SEE COMMENTS; Start 06/22/21 at 22:30; Stop 06/24/21 at 22:29; Status DC Potassium Chloride (Klor-Con) 40 meq 1X ONCE PO Last administered on 06/23/21at 08:19; Start 06/23/21 at 07:45; Stop 06/23/21 at 07:46; Status DC Aspirin (Ecotrin) 81 mg DAILY PO Last administered on 06/27/21at 10:16; Start 06/23/21 at 09:00 Atorvastatin Calcium (Lipitor) 10 mg QHS PO Last administered on 06/26/21at 22:42; Start 06/23/21 at 21:00 Furosemide (Lasix) 40 mg DAILY PO Last administered on 06/27/21at 10:17; Start 06/23/21 at 09:00 Glipizide (Glucotrol) 5 mg BID PO ; Start 06/23/21 at 09:00; Stop 06/23/21 at 20:03; Status DC Montelukast Sodium (Singulair) 10 mg HS PO Last administered on 06/26/21at 22:42; Start 06/23/21 at 21:00 Spironolactone (Aldactone) 12.5 mg DAILY PO Last administered on 06/27/21at 10:17; Start 06/23/21 at 09:00 Zolpidem Tartrate (Ambien) 5 mg PRN QHS PRN PO INSOMNIA Last administered on 06/26/21at 22:44; Start 06/23/21 at 07:45 Albuterol Sulfate (Ventolin Neb Soln) 2.5 mg PRN Q6HRS PRN NEB SHORTNESS OF BREATH; Start 06/23/21 at 08:00; Stop 06/23/21 at 19:56; Status DC Amlodipine Besylate (Norvasc) 2.5 mg DAILY PO Last administered on 06/27/21at 10:18; Start 06/23/21 at 09:00 Pantoprazole Sodium (Protonix) 40 mg DAILYAC PO Last administered on 06/27/21at 10:15; Start 06/23/21 at 08:00 Cyclobenzaprine HCl (Flexeril) 10 mg PRN Q6HRS PRN PO MUSCLE SPASMS; Start 06/23/21 at 08:00 Ondansetron HCl (Zofran) 4 mg PRN Q6HRS PRN IVP NAUSEA/VOMITING; Start 06/23/21 at 07:45 Calcium Carbonate/ Glycine (Tums) 500 mg PRN Q3HRS PRN PO UPSET STOMACH; Start 06/23/21 at 07:45 Info (Non-Icu Electrolyte Protocol) 1 ea PRN DAILY PRN MC SEE COMMENTS; Start 06/23/21 at 07:45 Oxycodone/ Acetaminophen (Percocet 5/325) 1 tab PRN Q4HRS PRN PO MILD PAIN, 1ST CHOICE Last administered on 06/26/21at 22:45; Start 06/23/21 at 07:45 Oxycodone/ Acetaminophen (Percocet 5/325) 2 tab PRN Q4HRS PRN PO MODERATE PAIN, SEVERE PAIN Last administered on 06/23/21at 21:54; Start 06/23/21 at 07:45 Acetaminophen (Tylenol) 650 mg PRN Q6HRS PRN PO Headaches, Temp > 101.5F; Start 06/23/21 at 07:45 Senna/Docusate Sodium (Senna Plus) 1 tab BID PO Last administered on 06/24/21at 20:29; Start 06/23/21 at 09:00 Enoxaparin Sodium (Lovenox 100mg Syringe) 100 mg 1X ONCE SQ Last administered on 06/23/21at 08:19; Start 06/23/21 at 08:00; Stop 06/23/21 at 08:01; Status DC Metoprolol Tartrate (Lopressor) 25 mg BID PO Last administered on 06/24/21at 08:07; Start 06/23/21 at 21:00; Stop 06/24/21 at 13:15; Status DC Apixaban (Eliquis) 5 mg BID PO Last administered on 06/27/21at 10:15; Start 06/23/21 at 21:00 Albuterol Sulfate (Ventolin Hfa) 1 puff PRN Q6HRS PRN INH SHORTNESS OF BREATH; Start 06/23/21 at 20:00 Glipizide (Glucotrol) 5 mg BIDAC PO Last administered on 06/27/21at 10:15; Start 06/24/21 at 07:30 Metoprolol Tartrate (Lopressor) 12.5 mg BID PO Last administered on 06/27/21at 10:16; Start 06/24/21 at 21:00 Metoprolol Tartrate (Lopressor Vial) 5 mg 1X ONCE IVP Last administered on 06/25/21at 12:32; Start 06/25/21 at 12:15; Stop 06/25/21 at 12:16; Status DC Amiodarone HCl 150 mg/Dextrose 103 ml @ 600 mls/hr 1X ONCE IV Last administered on 06/25/21at 14:42; Start 06/25/21 at 13:00; Stop 06/25/21 at 13:10; Status DC Amiodarone HCl 450 mg/Dextrose 259 ml @ 33 mls/hr CONT PRN IV SEE I/O RECORD Last administered on 06/25/21at 20:10; Start 06/25/21 at 13:00; Stop 06/26/21 at 12:59; Status DC Guaifenesin/ Codeine Phosphate (Robitussin Ac) 5 ml PRN Q6HRS PRN PO COUGH Last administered on 06/26/21at 22:42; Start 06/25/21 at 15:30 Throat Lozenges (Cepacol Sore Throat Lozenge) 1 isaura PRN Q2HRS PRN PO SORE THROAT Last administered on 06/27/21at 05:05; Start 06/27/21 at 04:45 Active Scripts Active Orphenadrine Citrate 100 Mg Tablet.er 1 Tab PO BID PRN Hepler 5-325 Tablet (Acetaminophen/Hydrocodone Bitart) 1 Each Tablet 1-2 Each PO PRN Q6HRS PRN as needed for pain Reported Cold & Flu Relief Multi-Sym Lq (Diphenhydra/Phenyleph/Acetamin) 180 Ml Liquid 180 Ml PO PRN PRN Montelukast Sodium Tablet (Montelukast Sodium) 10 Mg Tablet 10 Mg PO HS Calcium 600 + Vit D3 Caplet (Calcium Carbonate/Vitamin D3) 1 Each Tablet 1 Tab PO DAILY 30 Days Fish Oil 1,200 mg Softgel ([place]-3/Dha/Epa/Fish Oil) 1 Each Capsule.dr 1 Cap PO DAILY 30 Days Tramadol Hcl 50 Mg Tablet 50 Mg PO Q6HRS PRN Ambien (Zolpidem Tartrate) 5 Mg Tablet 5 Mg PO PRN QHS PRN Atorvastatin Calcium 10 Mg Tablet 1 Tab PO DAILY Aspirin Ec (Aspirin) 81 Mg Tablet.dr 1 Tab PO DAILY Vitamin B-12 (Cyanocobalamin (Vitamin B-12)) 1,000 Mcg Tablet 1 Tab PO DAILY Omeprazole 40 Mg Capsule.dr 1 Cap PO DAILY Furosemide 40 Mg Tablet 1 Tab PO DAILY Ventolin Hfa Inhaler (Albuterol Sulfate) 18 Gm Hfa.aer.ad 2 Puff INH QIDPRN Percocet 7.5-325 Mg Tablet (Oxycodone/Acetaminophen) 1 Each Tablet 1 Tab PO PRN Q6HRS PRN Amlodipine Besylate 2.5 Mg Tablet 2.5 Mg PO DAILY Zolpidem Tartrate 5 Mg Tablet 5 Mg PO PRN QHS PRN Tessalon Perle (Benzonatate) 100 Mg Capsule 100 Mg PO TID PRN Glipizide 5 Mg Tablet 1 Tab PO BID Potassium Chloride (Potassium Chloride) 10 Meq Tab.sr.24h 10 Meq PO DAILY Spironolactone 25 Mg Tablet 0.5 Tab PO DAILY Vitals/I & O Vital Sign - Last 24 Hours 06/26/21 06/26/21 06/26/21 06/26/21 19:32 20:00 22:44 22:45 Temp 98.6 98.6 Pulse 51 80 Resp 18 24 B/P (MAP) 153/70 (97) 153/70 Pulse Ox 99 99 O2 Delivery Nasal Cannula Nasal Cannula Nasal Cannula O2 Flow Rate 2.0 2.0 2.0 06/26/21 06/26/21 06/27/21 06/27/21 22:46 23:15 02:55 07:00 Temp 99.1 98.9 99.0 99.1 98.9 99.0 Pulse 90 74 68 Resp 16 22 18 20 B/P (MAP) 154/87 (109) 153/82 (105) 165/77 (106) Pulse Ox 98 98 96 99 O2 Delivery Nasal Cannula Nasal Cannula Nasal Cannula Nasal Cannula O2 Flow Rate 2.0 2.0 2.0 2.0 06/27/21 06/27/21 06/27/21 06/27/21 08:00 10:16 10:18 11:00 Temp 99.8 99.8 Pulse 68 68 88 Resp 22 B/P (MAP) 165/77 165/77 140/67 (91) Pulse Ox 92 O2 Delivery Nasal Cannula Nasal Cannula O2 Flow Rate 2.0 2.0 Intake and Output 06/26/21 06/26/21 06/27/21 15:00 23:00 07:00 Intake Total 360 ml 280 ml 0 ml Output Total 700 ml Balance 360 ml -420 ml 0 ml Justifications for Admission Other Justification NYASIA COMER MD Jun 27, 2021 16:41
[2021-06-27] MEDS: oxyCODONE/APAP 5/325 1 TAB TABLET PO PRN (18:43)
[2021-06-27 19:45] VITALS: BP 159/65
[2021-06-27] MEDS: ATORVASTATIN CALCIUM 10 MG TABLET. PO SCH (22:02)
[2021-06-27] MEDS: ZOLPIDEM 5 MG TABLET. PO PRN (22:04)
[2021-06-27] MEDS: MONTELUKAST SODIUM 10 MG TABLET. PO SCH (22:04)
[2021-06-27 23:19] VITALS: BP 140/70
[2021-06-28 02:54] VITALS: BP 170/77
[2021-06-28 07:55] VITALS: BP 170/66
[2021-06-28] MEDS: FUROSEMIDE 40 MG TABLET. PO SCH (08:15)
[2021-06-28] MEDS: ASPIRIN ENTERIC COATED 81 MG TABLET.DR. PO SCH (08:15)
[2021-06-28] MEDS: SPIRONOLACTONE 25 MG TABLET PO SCH (08:16)
[2021-06-28] MEDS: SENNOSIDES/DOCUSATE 8.6/50MG TABLET. PO SCH (08:16)
[2021-06-28] MEDS: PANTOPRAZOLE 40 MG TABLET.DR. PO SCH (08:17)
[2021-06-28] MEDS: glipiZIDE 5 MG TABLET PO SCH (08:17)
[2021-06-28] MEDS: METOPROLOL TART IMMED RELEASE 25 MG TABLET. PO SCH (08:18)
[2021-06-28] MEDS: APIXABAN 5 MG TABLET. PO SCH (08:18)
[2021-06-28 10:01] VITALS: BP 117/57
[2021-06-28] MEDS ORDERED: METO25TA4 PO (10:39)
[2021-06-28] MEDS ORDERED: APIX5TAB PO (10:39)
[2021-06-28] MEDS: oxyCODONE/APAP 5/325 1 TAB TABLET PO PRN (10:49)
--- NOTE | 2021-06-28 10:57 | NUR ---
SS following up with discharge planning. SS reviewed pt chart and discussed with pt RN. Pt is currently requiring oxygen at two liters nasal canula. COVID19 negative. Pt reporting that she does not have home oxygen. Six minute walk completed and script for oxygen received. SS phoned and faxed script and clinical to [facility], ; fax [phone]. Oxygen tank provided to pt for home. Discharge order on the chart for home with self care.
--- NOTE | 2021-06-28 11:36 | PDOC ---
ANITA DAVID PROJECTION TECHNICIAN 06/28/21 1135: CARDIO Progress Notes Date and Time Date of Service 06/28/21 Time of Evaluation 1130 Subjective Subjective: No Chest Pain, No shortness of breath, No Palpitations Vitals Vitals Vital Signs Date Time Temp Pulse Resp B/P (MAP) Pulse Ox O2 Delivery O2 Flow Rate FiO2 06/28/21 11:26 Nasal Cannula 2.0 06/28/21 10:01 97.9 55 17 117/57 (77) 96 97.9 Weight Weight [ ] Input and Output Intake and Output Intake and Output 06/28/21 07:00 Intake Total 1100 ml Output Total 300 ml Balance 800 ml Intake Oral 1100 ml Output Urine Total 300 ml # Voids 1 Laboratory Labs Laboratory Tests Test 06/27/21 11:46 06/27/21 16:52 06/27/21 20:49 06/28/21 08:01 Glucose (Fingerstick) 174 mg/dL (70-99) 98 mg/dL (70-99) 195 mg/dL (70-99) 114 mg/dL (70-99) Test 06/28/21 11:15 Glucose (Fingerstick) 166 mg/dL (70-99) Microbiology Micro Microbiology 06/22/21 Blood Culture - Final, Complete NO GROWTH AFTER 5 DAYS Physical Exam HEENT: Neck Supple W Full Motion Chest: Symmetric LUNGS: Other (diminished bases) Heart: RRR (SR) Abdomen: Soft N/T Extremities: No Edema Neurology: alert, oriented, follow commands Assessment Assessment 1. New onset AFIB; ? tachy-stephanie. episodes of bradycardia. metoprolol decreased to 12.5mg BID. had recurrent AFIB with RVR. Amiodarone gtt initiated, but was held due to bradycardia 2. Obesity, SIMRAN intolerant to CPAP 3. Hypertension; controlled 4. Hyperlipidemia; statin 5. Diabetes, II 6. H/o lung CA s/p chemo and radiation 7. Hypokalemia; replaced Recommendations Discontinued metoprolol. Resume amiodarone therapy for rhythm maintenance (400mg daily x 7 days then 200mg daily thereafter). Eliquis for stroke prophylaxis Outpatient event monitor to assess for tachy-stephanie. May ultimately require PPM implantation Outpatient ischemic evaluation scheduled Follow up in our office with Dr. Parrish as scheduled. Justicifation of Admission Dx: Justifications for Admission: Justification of Admission Dx: Yes REBECCA PARRISH MD 06/28/21 1711: CARDIO Progress Notes Assessment Assessment Patient seen and examined. Agree with REVENUE STAMPER's assessment and plan. Telemetry reviewed -clinical picture very suspicious for tachycardia-bradycardia syndrome Continue metoprolol for rate control, amiodarone for rhythm maintenance and eliquis for stroke prophylaxis Plan outpatient event monitor and ischemic evaluation ANITA DAVID APRN Jun 28, 2021 11:35 REBECCA PARRISH MD Jun 28, 2021 17:11
[2021-06-28] MEDS ORDERED: AMIO200T53 PO (14:18)
[2021-06-28] MEDS ORDERED: AMIO400T5 PO (14:18)
[2021-06-28] MEDS ORDERED: AMIODARONE HCL 200 MG TABLET. PO SCH (14:30)
[2021-06-28 14:54] VITALS: BP 117/57
--- NOTE | 2021-06-28 15:00 | PDOC3 ---
[facility]-Dis[facility] Summary Date of Admission: Date of Admission: Jun 22, 2021 Date of Discharge: Date of Discharge: Jun 28, 2021 Admission Diagnosis: Problems: (1) Afib (2) Chest pain Discharge Diagnosis: Discharge Diagnosis: Same Consults: Consults: Cardiology Procedures: Procedures: <Conclusion> The left ventricle is normal size. The left ventricular systolic function is normal and the ejection fraction is within normal range. LV ejection fraction of 60 to 65%. There is moderate to severe concentric left ventricular hypertrophy. There is normal LV segmental wall motion. Doppler and Color Flow revealed mild aortic regurgitation. There is no significant aortic valvular stenosis. Doppler and Color-flow revealed mild mitral regurgitation. Doppler and Color Flow revealed mild tricuspid regurgitation. Estimated PAP 55- 60 mmHg. Signed by : Asif Lopez MD Electronically Approved : 06/25/2021 18:01:58 Hospital Course: Hospital Course: hief Complaint Shortness of breath secondary to new onset atrial fibrillation history of lung cancer. History asthma diabetes hypertension -Patient was at her doctor yesterday and was reported to be in A. fib instructed to come to emergency room. -couple week history of SOB -Cardiology consult -We will give patient 1 dose weight-based Lovenox given A. fib. Will discuss with cardiology about this anticoagulation -CT scan does not show any pneumonia pulmonary embolus -Echo ordered -PT OT -Cardiac diet -Home meds resumed as indicated History of Present Illness History of Present Illness Patient is a 71 year old female with history of diabetes type 2, hypertension, asthma, COPD currently not a smoker, lung cancer treated with chemo and radiation 1 year ago who presented to the ED overnight complaining of shortness of breath for last 2-3 weeks.. Patient said she went to see her own doctor and was noted to be in A. fib. Was then instructed to come to the ED. Patient states symptoms are worse on exertion. Patient denies any chest pain. Patient denies any fever, denies any unusual coughing or congestion. Patient denies 06/24 Patient evaluate examined at bedside. Resting in bed no acute complaints. Cardiology following. If cleared by them can likely discharge today or tomorrow. 06/25 Patient evaluated examined at bedside. She was resting in bed complaining of a little bit of chest tightness on her right side with radiation to her back. Says to me that she does feel kind of edematous. Remains on oxygen. 6-minute walk ordered for tomorrow morning. Hopeful for discharge tomorrow or Monday. 06/26 Patient evaluated examined at bedside. New onset A. fib yesterday requiring amnio drip per cardiology. Will defer control of this to them. Otherwise continue current treatment plan. 06/27 Patient evaluate examined at bedside. Amnio drip had to be stopped due to bradycardia. On low-dose Lopressor now. When I saw her she was resting in bed. Continuing current plan. We will try 6-minute walk tomorrow. 06/28 Patient evaluated examined at bedside. Resting bed no acute complaints. Inquiring about discharge. He has completed 6-minute walk needs 2 L O2. Plan to discharge home today with cardiology follow-up. Greater than 30 minutes spent on this discharge. Disposition: Disposition/Orders: D/C to Home Activity: Activity: Resume previous activity Diet: Diet: Cardiac Medications: Home Meds Active Scripts Amiodarone Hcl (AMIODARONE HCL) 200 Mg Tablet, 1 TAB PO DAILY for AFIB for 30 Days, #30 TAB 3 Refills Prov:ANITA DAVID APRN 06/28/21 Amiodarone Hcl (AMIODARONE HCL) 400 Mg Tablet, 1 TAB PO DAILY for AFIB for 7 Days, #7 TAB 0 Refills Prov:ANITA DAVID APRN 06/28/21 Apixaban (ELIQUIS) 5 Mg Tablet, 5 MG PO BID for afib for 60 Days, #120 TAB Prov:CHAPINCITO GALLOWAY MD 06/28/21 Orphenadrine Citrate (ORPHENADRINE CITRATE) 100 Mg Tablet.er, 1 TAB PO BID PRN for MUSCLE SPASMS, #14 TAB Prov:RICKY SCOTT Jr. DO 12/17/19 Hydrocodone/Apap 5-325 (NORCO 5-325 TABLET) 1 Each Tablet, 1-2 EACH PO PRN Q6HRS PRN for PAIN, #15 as needed for pain Prov:RICKY SCOTT Jr. DO 12/17/19 Reported Medications Diphenhydra/Phenyleph/Acetamin (Cold & Flu Relief Multi-Sym Lq) 180 Ml Liquid, 180 ML PO PRN PRN for COUGH, LIQUID 11/26/19 Montelukast Sodium (MONTELUKAST SODIUM TABLET ) 10 Mg Tablet, 10 MG PO HS for FOR ASTHMA, TAB 0 Refills 11/26/19 Calcium Carbonate/Vitamin D3 (Calcium 600 + Vit D3 Caplet) 1 Each Tablet, 1 TAB PO DAILY for rx for 30 Days, #30 TAB 0 Refills 11/26/19 [place]-3/Dha/Epa/Fish Oil (Fish Oil 1,200 mg Softgel) 1 Each Capsule.dr, 1 CAP PO DAILY for rx for 30 Days, #30 CAP 0 Refills 11/26/19 Tramadol Hcl (TRAMADOL HCL) 50 Mg Tablet, 50 MG PO Q6HRS PRN for PAIN, TAB 11/26/19 Zolpidem Tartrate (AMBIEN) 5 Mg Tablet, 5 MG PO PRN QHS PRN for INSOMNIA, TAB 0 Refills 11/26/19 Atorvastatin Calcium (ATORVASTATIN CALCIUM) 10 Mg Tablet, 1 TAB PO DAILY for rx, #30 TAB 5 Refills 11/26/19 Aspirin (ASPIRIN EC) 81 Mg Tablet.dr, 1 TAB PO DAILY for rx, #30 TAB 3 Refills 11/26/19 Cyanocobalamin (Vitamin B-12) (VITAMIN B-12) 1,000 Mcg Tablet, 1 TAB PO DAILY for energy/supplement 01/22/18 Omeprazole (OMEPRAZOLE) 40 Mg Capsule.dr, 1 CAP PO DAILY for GERD 01/22/18 Furosemide (FUROSEMIDE) 40 Mg Tablet, 1 TAB PO DAILY for diuretic 01/22/18 Albuterol Sulfate (VENTOLIN HFA INHALER) 18 Gm Hfa.aer.ad, 2 PUFF INH QIDPRN for COPD 01/11/18 Oxycodone/Apap 7.5-325 (PERCOCET 7.5-325 MG TABLET ) 1 Each Tablet, 1 TAB PO PRN Q6HRS PRN for PAIN 01/11/18 Amlodipine Besylate (AMLODIPINE BESYLATE) 2.5 Mg Tablet, 2.5 MG PO DAILY for HTN 01/11/18 Zolpidem Tartrate (ZOLPIDEM TARTRATE) 5 Mg Tablet, 5 MG PO PRN QHS PRN for INSOMNIA 01/11/18 Benzonatate (TESSALON PERLE) 100 Mg Capsule, 100 MG PO TID PRN for COUGH 01/11/18 Glipizide (GLIPIZIDE) 5 Mg Tablet, 1 TAB PO BID for diabetes 11/14/17 Potassium Chloride (POTASSIUM CHLORIDE ) 10 Meq Tab.sr.24h, 10 MEQ PO DAILY for supplement 11/14/17 Spironolactone (SPIRONOLACTONE) 25 Mg Tablet, 0.5 TAB PO DAILY for HTN 11/14/17 Scheduled Albuterol Sulfate (Ventolin Hfa Inhaler), 2 PUFF INH QIDPRN, (Reported) Amiodarone Hcl (Amiodarone Hcl), 1 TAB PO DAILY Amiodarone Hcl (Amiodarone Hcl), 1 TAB PO DAILY Amlodipine Besylate (Amlodipine Besylate), 2.5 MG PO DAILY, (Reported) Apixaban (Eliquis), 5 MG PO BID Aspirin (Aspirin Ec), 1 TAB PO DAILY, (Reported) Atorvastatin Calcium (Atorvastatin Calcium), 1 TAB PO DAILY, (Reported) Calcium Carbonate/Vitamin D3 (Calcium 600 + Vit D3 Caplet), 1 TAB PO DAILY, (Reported) Cyanocobalamin (Vitamin B-12) (Vitamin B-12), 1 TAB PO DAILY, (Reported) Furosemide (Furosemide), 1 TAB PO DAILY, (Reported) Glipizide (Glipizide), 1 TAB PO BID, (Reported) Montelukast Sodium (Montelukast Sodium Tablet ), 10 MG PO HS, (Reported) [place]-3/Dha/Epa/Fish Oil (Fish Oil 1,200 mg Softgel), 1 CAP PO DAILY, (Reported) Omeprazole (Omeprazole), 1 CAP PO DAILY, (Reported) Potassium Chloride (Potassium Chloride ), 10 MEQ PO DAILY, (Reported) Spironolactone (Spironolactone), 0.5 TAB PO DAILY, (Reported) Scheduled PRN Benzonatate (Tessalon Perle), 100 MG PO TID PRN for COUGH, (Reported) Diphenhydra/Phenyleph/Acetamin (Cold & Flu Relief Multi-Sym Lq), 180 ML PO PRN PRN for COUGH, (Reported) Hydrocodone/Apap 5-325 ([place] 5-325 Tablet), 1-2 EACH PO PRN Q6HRS PRN for PAIN Orphenadrine Citrate (Orphenadrine Citrate), 1 TAB PO BID PRN for MUSCLE SPASMS Oxycodone/Apap 7.5-325 (Percocet 7.5-325 Mg Tablet ), 1 TAB PO PRN Q6HRS PRN for PAIN, (Reported) Tramadol Hcl (Tramadol Hcl), 50 MG PO Q6HRS PRN for PAIN, (Reported) Zolpidem Tartrate (Zolpidem Tartrate), 5 MG PO PRN QHS PRN for INSOMNIA, (Reported) Zolpidem Tartrate (Ambien), 5 MG PO PRN QHS PRN for INSOMNIA, (Reported) Justicifation of Admission Dx: Justifications for Admission: Justification of Admission Dx: Yes CHAPINCITO GALLOWAY MD Jun 28, 2021 15:00
--- NOTE | 2021-06-28 17:08 | NUR ---
Patient discharged home with self care today via wheelchair, accompanied by this RN. Patient is stable, IV removed, oxygen, heart monitor Zio XT and discharge paperwork given to patient. Patient verbalized understanding of followup and discharge instruction.
[2021-07-05] MEDS ORDERED: AMIODARONE HCL 200 MG TABLET. PO SCH (09:00)
== END 2021-06-28 16:40 | disposition home or self-care (01) | DRG 309 ==
LOC: ER 16:25 → ED HOLD 20:22 → 6 SOUTH 06-23 18:00
PROVIDERS: ADMIT Student in an Organized Health Care Education/Training Program; ATTEND Student in an Organized Health Care Education/Training Program
DX: I48.91 Unspecified atrial fibrillation (principal); Z68.42 Body mass index [BMI] 45.0-49.9, adult; E44.0 Moderate protein-calorie malnutrition; E11.9 Type 2 diabetes mellitus without complications; E66.9 Obesity, unspecified; E78.5 Hyperlipidemia, unspecified; E87.6 Hypokalemia; G47.33 Obstructive sleep apnea (adult) (pediatric); I11.9 Hypertensive heart disease without heart failure; J44.9 Chronic obstructive pulmonary disease, unspecified; Z82.49 Family history of ischemic heart disease and other diseases of the circulatory system; Z83.3 Family history of diabetes mellitus; Z85.118 Personal history of other malignant neoplasm of bronchus and lung; Z87.891 Personal history of nicotine dependence; Z90.710 Acquired absence of both cervix and uterus; Z92.21 Personal history of antineoplastic chemotherapy; Z92.3 Personal history of irradiation; Z98.51 Tubal ligation status; F32.A Depression, unspecified; K21.9 Gastro-esophageal reflux disease without esophagitis; M19.90 Unspecified osteoarthritis, unspecified site; Z20.822 Contact with and (suspected) exposure to COVID-19; I08.3 Combined rheumatic disorders of mitral, aortic and tricuspid valves; G47.00 Insomnia, unspecified
CPT/HCPCS: 36415; 71045; 71275; 80048; 80053; 80061; 81001; 82962; 83605; 83735; 83880; 84443; 84484; 85025; 87040; 87426; 93005; 93306; 94618; 94640; J0282; J1650; J3490; J7060; Q9967; U0003; U0005; 99285-25; G0378